=== PATIENT | male | born 1970 | race Caucasian/White ===

== ENCOUNTER 2018-03-10 12:05 | Observation (INO) | payer MEDICAID ==
--- NOTE | 2018-03-10 12:11 | EDM.PDOC ---
ED HPI GENERAL MEDICAL PROBLEM - General Chief Complaint: General Stated Complaint: "Cramps all over" Time Seen by Provider: 03/10/18 12:10 Source of Information: Reports: Patient, Family - History of Present Illness INITIAL COMMENTS - FREE TEXT/NARRATIVE: States that he has been having terrible muscle cramps. He said they started after having "a half seizure" yesterday. He says that he had terrible muscle cramps and he held onto the chair and it went away. He states that since then he has had muscle cramps in arms and legs. He hasn't been eating well as when he does the last several days he throws it up. Denies any blood in his vomit. Has pain in the midepigastric area with palpation. No diarrhea. Does admit to drinking about a 12 pack a day of beer and sometimes some hard shots. Has not been taking his seizure meds as he has been out of them. Onset: Gradual Location: Reports: Abdomen, Upper Extremity, Left, Upper Extremity, Right, Lower Extremity, Left, Lower Extremity, Right Worsens with: Reports: Movement Associated Symptoms: Reports: Fever/Chills, Nausea/Vomiting - Related Data Allergies Allergy/AdvReac Type Severity Reaction Status Date / Time No Known Allergies Allergy Verified 04/20/15 20:56 Home Meds: Home Meds carBAMazepine [Carbamazepine] 200 mg PO TID 04/20/15 [History] Past Medical History Neurological History: Reports: Seizure Social & Family History - Alcohol Use Alcohol Use History: Yes Days Per Week of Alcohol Use Comment: 12 pack of beer and some hard shots some days. ED ROS GENERAL - Review of Systems Review Of Systems: See Below Constitutional: Reports: Weakness. Denies: Fever, Chills HEENT: Reports: No Symptoms Respiratory: Reports: No Symptoms Cardiovascular: Reports: No Symptoms GI/Abdominal: Reports: Abdominal Pain, Anorexia, Nausea, Vomiting. Denies: Black Stool, Bloody Stool, Constipation, Diarrhea : Reports: No Symptoms Musculoskeletal: Reports: Other (muscle cramps to his extremities.) Skin: Reports: No Symptoms Neurological: Reports: Other (memory getting worse.) Psychiatric: Reports: No Symptoms ED EXAM, GENERAL - Physical Exam Exam: See Below Exam Limited By: No Limitations General Appearance: Alert, Mild Distress Ears: Normal External Exam, Normal Canal, Normal TMs Nose: Normal Inspection Throat/Mouth: Normal Inspection, Normal Oropharynx, No Airway Compromise Head: Atraumatic, Normocephalic Neck: Normal Inspection, Supple, Non-Tender, Full Range of Motion Respiratory/Chest: No Respiratory Distress, Lungs Clear, Normal Breath Sounds Cardiovascular: Regular Rate, Rhythm, No Edema GI/Abdominal: Normal Bowel Sounds, Soft, Tender (tender in the midepgastric area.) Extremities: Normal Inspection, Normal Range of Motion, Other (legs and arms are tender in the muscle bodies. Is able to ambulate without any difficulty but does wal slowly.) Neurological: Alert, Oriented, Normal Reflexes, No Motor/Sensory Deficits Psychiatric: Normal Affect Skin Exam: Warm, Dry, Intact Course - Orders/Labs/Meds Orders: Active Orders 24 hr Category Date Time Status C-REACTIVE PROTEIN [CHEM] Stat Lab 03/10/18 12:15 Received COMPREHENSIVE METABOLIC PN,CMP [CHEM] Stat Lab 03/10/18 12:15 Received UA W/MICROSCOPIC [URIN] Stat Lab 03/10/18 12:09 Ordered Labs: Laboratory Tests 03/10/18 Range/Units 12:15 WBC 8.3 (5.0-10.0) 10^3/uL RBC 5.06 (4.50-6.00) 10^6/uL Hgb 16.2 (14.0-18.0) g/dL Hct 45.9 (40.0-54.0) % MCV 90.7 (82.0-94.0) fL MCH 32.0 (27.0-32.0) pg MCHC 35.3 (33.0-38.0) g/dL RDW Coeff of Isabelle 12.9 (11.0-15.0) % Plt Count 228 (150-400) 10^3/uL Neut % (Auto) 64.8 (35-85) % Lymph % (Auto) 20.5 (10-55) % [place] % (Auto) 13.4 (0-16) % Eos % (Auto) 1.1 (0-5) % Baso % (Auto) 0.2 (0-3) % Neut # (Auto) 5.40 (1.80-7.00) 10^3/uL Lymph # (Auto) 1.71 (1.00-4.80) 10^3/uL [place] # (Auto) 1.12 H (0.00-0.80) 10^3/uL Eos # (Auto) 0.09 (0.00-0.45) 10^3/uL Baso # (Auto) 0.02 10^3/uL - Re-Assessments/Exams Free Text/Narrative Re-Assessment/Exam: 03/10/18 13:10 In to discuss his lab results with the patient. He will be admitted observation for IV fluids, IV potassium, Magnesium and protonix. Will get labs repeated in the AM. Departure - Departure Time of Disposition: 13:18 Disposition: Refer to Observation Condition: Fair Clinical Impression: Hypokalemia, Hyponatremia, Hypomagnesemia, Muscle cramps, Seizure disorder - Discharge Information *PRESCRIPTION DRUG MONITORING PROGRAM REVIEWED*: Not Applicable *COPY OF PRESCRIPTION DRUG MONITORING REPORT IN PATIENT ANH: Not Applicable Forms: ED Department Discharge Additional Instructions: Will be admitted observation for IV fluids, magnesium, potassium, and protonix. - Problem List & Annotations (1) Hypokalemia SNOMED Code(s): 33440971 Code(s): E87.6 - HYPOKALEMIA Status: Acute Priority: High Current Visit : Yes (2) Hypomagnesemia SNOMED Code(s): 578535687 Code(s): E83.42 - HYPOMAGNESEMIA Status: Acute Priority: High Current Visit: Yes (3) Hyponatremia SNOMED Code(s): 12091582 Code(s): E87.1 - HYPO-OSMOLALITY AND HYPONATREMIA Status: Acute Priority : High Current Visit: Yes (4) Muscle cramps SNOMED Code(s): 58942508 Code(s): R25.2 - CRAMP AND SPASM Status: Acute Priority: Medium Current Visit: Yes (5) Seizure SNOMED Code(s): 50032131 Code(s): R56.9 - UNSPECIFIED CONVULSIONS Status: Chronic Priority: Low Current Visit: No (6) Alcohol abuse SNOMED Code(s): 34889307 Code(s): F10.10 - ALCOHOL ABUSE, UNCOMPLICATED Status: Chronic Priority: Low Current Visit: No - Problem List Review Problem List Initiated/Reviewed/Updated: Yes - My Orders Last 24 Hours: My Active Orders 03/10/18 12:09 UA W/MICROSCOPIC [URIN] Stat 03/10/18 12:15 C-REACTIVE PROTEIN [CHEM] Stat COMPREHENSIVE METABOLIC PN,CMP [CHEM] Stat - Assessment/Plan Admission H&P: Please use this note as an admission H&P Last 24 Hours: My Active Orders 03/10/18 12:09 UA W/MICROSCOPIC [URIN] Stat 03/10/18 12:15 C-REACTIVE PROTEIN [CHEM] Stat COMPREHENSIVE METABOLIC PN,CMP [CHEM] Stat
[2018-03-10 12:32] LABS: CHLORIDE,CL 78 mEq/L (98-106); SODIUM,NA 128 mEq/L (136-145)
[2018-03-10] MEDS ORDERED: Magnesium Sulfate/D5W 2 GM in Premix Bag 1 BAG IV ONE (13:34)
[2018-03-10] MEDS ORDERED: Ondansetron 4 MG/2 ML SDV IVPUSH PRN (13:34)
[2018-03-10] MEDS ORDERED: Potassium Chloride 40 MEQ in Premix Bag 1 BAG IV ONE (13:34)
[2018-03-10] MEDS ORDERED: Sodium Chloride 0.9% 10 ML Syringe FLUSH PRN (13:34)
[2018-03-10] MEDS ORDERED: Thiamine 200 MG/2 ML MDV IV SCH (13:45)
[2018-03-10] MEDS ORDERED: LORazepam 2 MG/ML Syringe IVPUSH PRN (13:48)
[2018-03-10] MEDS: Pantoprazole 40 MG Vial IVPUSH SCH (14:24)
[2018-03-10] MEDS: Thiamine 100 MG in Sodium Chloride 0.9% 50 ML IV SCH (14:30)
[2018-03-10] MEDS: Nicotine 14 MG/24 Hr Patch TRDERM SCH (14:30)
[2018-03-10] MEDS: Enoxaparin 40 MG/0.4 ML Syringe SUBCUT SCH (14:31)
[2018-03-10] MEDS: Sodium Chloride 0.9% 1,000 ML IV SCH ×2 (14:48→22:08)
[2018-03-10] MEDS ORDERED: Ibuprofen 200 MG Tab PO PRN (19:33)
[2018-03-11] MEDS: Sodium Chloride 0.9% 1,000 ML IV SCH ×3 (06:09→22:12)
[2018-03-11 07:30] LABS: CHLORIDE,CL 87 mEq/L (98-106); SODIUM,NA 126 mEq/L (136-145)
[2018-03-11] MEDS: Nicotine 14 MG/24 Hr Patch TRDERM SCH ×2 (07:54→18:50)
[2018-03-11] MEDS: Thiamine 100 MG in Sodium Chloride 0.9% 50 ML IV SCH (07:55)
[2018-03-11] MEDS ORDERED: Potassium Chloride 40 MEQ in Premix Bag 1 BAG IV ONE (09:10)
--- NOTE | 2018-03-11 09:31 | PCM.PN ---
- General Info Date of Service: 03/11/18 Admission Dx/Problem (Free Text): hypokalemia, hyponatremia, hypomagnesium, weakness Subjective Update: States that he is feeling better today. Has been urinating more frequently. Muscle cramps have improved. Functional Status: Reports: Pain Controlled - Review of Systems General: Reports: No Symptoms HEENT: Reports: No Symptoms Pulmonary: Reports: No Symptoms Cardiovascular: Reports: No Symptoms Gastrointestinal: Reports: No Symptoms Genitourinary: Reports: No Symptoms Musculoskeletal: Reports: No Symptoms Skin: Reports: No Symptoms Neurological: Reports: No Symptoms - Patient Data Vitals - Most Recent: Last Vital Signs Temp 98.7 F 03/11/18 05:00 Pulse 96 03/11/18 05:00 Resp 16 03/11/18 05:00 BP 135/84 03/11/18 05:00 Pulse Ox 94 L 03/11/18 05:00 Weight - Most Recent: 127 lb 3.307 oz I&O - Last 24 Hours: Intake & Output 03/10/18 03/11/18 03/11/18 22:59 06:59 14:59 Intake Total 2792 1860 Output Total 300 650 Balance 2492 1210 Lab Results Last 24 Hours: Laboratory Results - last 24 hr 03/10/18 03/10/18 03/10/18 Range/Units 12:15 12:15 18:46 WBC 8.3 (5.0-10.0) 10^3/uL RBC 5.06 (4.50-6.00) 10^6/uL Hgb 16.2 (14.0-18.0) g/dL Hct 45.9 (40.0-54.0) % MCV 90.7 (82.0-94.0) fL MCH 32.0 (27.0-32.0) pg MCHC 35.3 (33.0-38.0) g/dL RDW Coeff of Isabelle 12.9 (11.0-15.0) % Plt Count 228 (150-400) 10^3/uL Neut % (Auto) 64.8 (35-85) % Lymph % (Auto) 20.5 (10-55) % [place] % (Auto) 13.4 (0-16) % Eos % (Auto) 1.1 (0-5) % Baso % (Auto) 0.2 (0-3) % Neut # (Auto) 5.40 (1.80-7.00) 10^3/uL Lymph # (Auto) 1.71 (1.00-4.80) 10^3/uL [place] # (Auto) 1.12 H (0.00-0.80) 10^3/uL Eos # (Auto) 0.09 (0.00-0.45) 10^3/uL Baso # (Auto) 0.02 10^3/uL Sodium 128 L (136-145) mEq/L Potassium 2.5 L* D (3.5-5.0) mEq/L Chloride 78 L (98-106) mEq/L Carbon Dioxide 42 H* D (21-32) mmol/L BUN 17 D (7-18) mg/dL Creatinine 2.0 H D (0.7-1.3) mg/dL Est Cr Clr Drug Dosing TNP Estimated GFR (MDRD) 36 L (>=60) mL/min Glucose 110 H (75-99) mg/dL Calcium 9.0 (8.4-10.1) mg/dL Magnesium 1.1 L (1.8-2.4) mg/dL Total Bilirubin 1.6 H (0.0-1.0) mg/dL AST 67 H (15-37) U/L ALT 171 H (12-78) U/L Alkaline Phosphatase 131 H (46-116) U/L C-Reactive Protein 5.2 H (0.2-0.8) mg/dL Total Protein 9.5 H (6.4-8.2) g/dL Albumin 4.2 (3.4-5.0) g/dL Urine Color Yellow (YELLOW) Urine Appearance Clear (CLEAR) Urine pH 8.5 H (4.5-8.0) Ur Specific [place] 1.015 (1.003-1.020) Urine Protein Trace H (NEGATIVE) mg/dL Urine Glucose (UA) Negative (NEGATIVE) mg/dL Urine Ketones Negative (NEGATIVE) mg/dL Urine Occult Blood Trace-intact H (NEGATIVE) Urine Nitrite Negative (NEGATIVE) Urine Bilirubin Small H (NEGATIVE) Urine Urobilinogen 4.0 H (0.2-1.0) EU/dL Ur Leukocyte Esterase Negative (NEGATIVE) Urine RBC Not seen (0-5) /HPF Urine WBC Not seen (0-5) /HPF Ur Epithelial Cells Few H (NOT SEEN) /HPF Hyaline Casts Moderate H (NOT SEEN) /LPF Urine Mucus Few H (NOT SEEN) /HPF 03/11/18 03/11/18 Range/Units 06:50 06:50 WBC 5.0 (5.0-10.0) 10^3/uL RBC 3.65 L (4.50-6.00) 10^6/uL Hgb 11.8 L (14.0-18.0) g/dL Hct 33.3 L (40.0-54.0) % MCV 91.2 (82.0-94.0) fL MCH 32.3 H (27.0-32.0) pg MCHC 35.4 (33.0-38.0) g/dL RDW Coeff of Isabelle 12.2 (11.0-15.0) % Plt Count 143 L (150-400) 10^3/uL Neut % (Auto) 51.4 (35-85) % Lymph % (Auto) 29.0 (10-55) % [place] % (Auto) 17.4 H (0-16) % Eos % (Auto) 2.0 (0-5) % Baso % (Auto) 0.2 (0-3) % Neut # (Auto) 2.57 (1.80-7.00) 10^3/uL Lymph # (Auto) 1.45 (1.00-4.80) 10^3/uL [place] # (Auto) 0.87 H (0.00-0.80) 10^3/uL Eos # (Auto) 0.10 (0.00-0.45) 10^3/uL Baso # (Auto) 0.01 10^3/uL Sodium 126 L (136-145) mEq/L Potassium 2.6 L* (3.5-5.0) mEq/L Chloride 87 L (98-106) mEq/L Carbon Dioxide 38 H (21-32) mmol/L BUN 13 (7-18) mg/dL Creatinine 1.1 (0.7-1.3) mg/dL Est Cr Clr Drug Dosing 66.30 Estimated GFR (MDRD) > 60 (>=60) mL/min Glucose 96 (75-99) mg/dL Calcium 7.7 L (8.4-10.1) mg/dL Magnesium 1.6 L (1.8-2.4) mg/dL Total Bilirubin 1.1 H (0.0-1.0) mg/dL AST 40 H (15-37) U/L ALT 94 H (12-78) U/L Alkaline Phosphatase 86 (46-116) U/L C-Reactive Protein 4.9 H (0.2-0.8) mg/dL Total Protein 6.4 (6.4-8.2) g/dL Albumin 2.8 L (3.4-5.0) g/dL Urine Color (YELLOW) Urine Appearance (CLEAR) Urine pH (4.5-8.0) Ur Specific [place] (1.003-1.020) Urine Protein (NEGATIVE) mg/dL Urine Glucose (UA) (NEGATIVE) mg/dL Urine Ketones (NEGATIVE) mg/dL Urine Occult Blood (NEGATIVE) Urine Nitrite (NEGATIVE) Urine Bilirubin (NEGATIVE) Urine Urobilinogen (0.2-1.0) EU/dL Ur Leukocyte Esterase (NEGATIVE) Urine RBC (0-5) /HPF Urine WBC (0-5) /HPF Ur Epithelial Cells (NOT SEEN) /HPF Hyaline Casts (NOT SEEN) /LPF Urine Mucus (NOT SEEN) /HPF Med Orders - Current: Current Medications Enoxaparin Sodium (Lovenox) 40 mg SUBCUT Q24H [facility] Last Admin: 03/10/18 14:31 Dose: 40 mg Sodium Chloride (Normal Saline) 1,000 mls @ 125 mls/hr IV ASDIRECTED [facility] Last Admin: 03/11/18 06:09 Dose: 125 mls/hr Thiamine HCl 100 mg/ Sodium (Chloride) 51 mls @ 102 mls/hr IV DAILY [facility] Last Admin: 03/11/18 07:55 Dose: 102 mls/hr Magnesium Sulfate/Dextrose 1 (gm/ Premix) 100 mls @ 100 mls/hr IV ONETIME ONE Stop: 03/11/18 10:10 Potassium Chloride 40 meq/ (Premix) 100 mls @ 25 mls/hr IV ONETIME ONE Stop: 03/11/18 13:09 Ibuprofen (Motrin) 400 mg PO Q6H PRN PRN Reason: Pain Last Admin: 03/10/18 19:53 Dose: 400 mg Levetiracetam (Keppra) 500 mg PO BID [facility] Lorazepam (Ativan) 2 mg IVPUSH ASDIRECTED PRN PRN Reason: agitation Nicotine (Habitrol) 14 mg TRDERM DAILY [facility] Last Admin: 03/11/18 07:54 Dose: 14 mg Ondansetron HCl (Zofran) 4 mg IVPUSH Q6H PRN PRN Reason: Nausea Pantoprazole Sodium (Protonix Iv) 40 mg IVPUSH Q24H [facility] Last Admin: 03/10/18 14:24 Dose: 40 mg Sodium Chloride (Saline Flush) 10 ml FLUSH ASDIRECTED PRN PRN Reason: Keep Vein Open Discontinued Medications Magnesium Sulfate/Dextrose 2 (gm/ Premix) 200 mls @ 100 mls/hr IV ONETIME ONE Stop: 03/10/18 15:33 Last Admin: 03/10/18 14:48 Dose: 100 mls/hr Potassium Chloride 40 meq/ (Premix) 100 mls @ 25 mls/hr IV ONETIME ONE Stop: 03/10/18 17:33 Last Admin: 03/10/18 14:48 Dose: 25 mls/hr Thiamine HCl (Vitamin B-1) 100 mg IV DAILY [facility] Last Admin: 03/10/18 14:09 Dose: Not Given - Exam General: Alert, Oriented Neck: Supple Lungs: Clear to Auscultation, Normal Respiratory Effort Cardiovascular: Regular Rate, Regular Rhythm GI/Abdominal Exam: Normal Bowel Sounds, Soft, No Organomegaly, Tender (Tender to the right upper quadrant. ) Back Exam: Normal Inspection, Full Range of Motion Extremities: Normal Inspection, Normal Range of Motion, Non-Tender Skin: Warm, Dry Psy/Mental Status: Alert, Normal Affect, Normal Mood - Problem List & Annotations (1) Hypokalemia SNOMED Code(s): 43492641 Code(s): E87.6 - HYPOKALEMIA Status: Acute Priority: High Current Visit : Yes (2) Hypomagnesemia SNOMED Code(s): 851856953 Code(s): E83.42 - HYPOMAGNESEMIA Status: Acute Priority: High Current Visit: Yes (3) Hyponatremia SNOMED Code(s): 22707380 Code(s): E87.1 - HYPO-OSMOLALITY AND HYPONATREMIA Status: Acute Priority : High Current Visit: Yes (4) Muscle cramps SNOMED Code(s): 17316163 Code(s): R25.2 - CRAMP AND SPASM Status: Acute Priority: Medium Current Visit: Yes (5) Seizure SNOMED Code(s): 83723414 Code(s): R56.9 - UNSPECIFIED CONVULSIONS Status: Chronic Priority: Low Current Visit: No (6) Alcohol abuse SNOMED Code(s): 06161676 Code(s): F10.10 - ALCOHOL ABUSE, UNCOMPLICATED Status: Chronic Priority: Low Current Visit: No - Problem List Review Problem List Initiated/Reviewed/Updated: Yes - My Orders Last 24 Hours: My Active Orders 03/10/18 13:22 Resuscitation Status Routine 03/10/18 13:34 Patient Status [ADT] Routine Height and Weight [RC] 0500 Intake and Output [RC] 0600,1800 Oxygen Therapy [RC] .PRN Peripheral IV Care [RC] 0800,2000 Up ad Micheline [RC] .PRN Vital Signs [RC] 0000,0400,0800,1200,1600,2000 Ondansetron [Zofran] 4 mg IVPUSH Q6H PRN Sodium Chloride 0.9% [Normal Saline] 1,000 ml IV ASDIRECTED Sodium Chloride 0.9% [Saline Flush] 10 ml FLUSH ASDIRECTED PRN Peripheral IV Insertion Adult [OM.PC] Routine 03/10/18 13:48 LORazepam [Ativan] 2 mg IVPUSH ASDIRECTED PRN 03/10/18 14:00 Enoxaparin [Lovenox] 40 mg SUBCUT Q24H Nicotine [Habitrol] 14 mg TRDERM DAILY Pantoprazole [ProTONIX IV] 40 mg IVPUSH Q24H 03/10/18 14:15 Thiamine [Vitamin B-1] 100 mg Sodium Chloride 0.9% [Normal Saline] 50 ml IV DAILY 03/10/18 18:46 UA W/MICROSCOPIC [URIN] Stat 03/10/18 19:33 Ibuprofen [Motrin] 400 mg PO Q6H PRN 03/10/18 Dinner Regular Diet [DIET] 03/11/18 09:10 Potassium Chloride [KCL 40 MEQ in Water 100 ML] 40 meq Premix Bag 1 bag IV ONETIME 03/11/18 09:11 Magnesium Sulfate/D5W [Magnesium 1 GM in D5W 100 ML] 1 gm Premix Bag 1 bag IV ONETIME 03/11/18 09:22 Abdomen Ltd [US] Routine 03/11/18 09:30 levETIRAcetam [Keppra] 500 mg PO BID 03/12/18 05:11 AMYLASE [CHEM] AM BASIC METABOLIC PANEL,BMP [CHEM] AM CBC WITH AUTO DIFF [HEME] AM MAGNESIUM [CHEM] AM - Plan Plan:: Potassium and magnesium are still both low at this time. Will repeat doses of both of these and repeat labs in the AM. Restart seizures meds that he has not been taking in several months will get RUQ abdominal US in the AM to rule out gallbladder dysfunction as he is tender in the RUQ of abdomen Continue on the IV fluids for hydration
[2018-03-11] MEDS: levETIRAcetam 500 MG Tab PO SCH ×2 (09:42→19:20)
[2018-03-11] MEDS: Enoxaparin 40 MG/0.4 ML Syringe SUBCUT SCH (14:10)
[2018-03-11] MEDS: Pantoprazole 40 MG Vial IVPUSH SCH (14:10)
[2018-03-12] MEDS: Sodium Chloride 0.9% 1,000 ML IV SCH (05:50)
[2018-03-12 07:28] LABS: CHLORIDE,CL 99 mEq/L (98-106); SODIUM,NA 133 mEq/L (136-145)
[2018-03-12] MEDS ORDERED: Magnesium Sulfate/D5W 2 GM in Premix Bag 1 BAG IV ONE (08:09)
[2018-03-12] MEDS ORDERED: Potassium Chloride 40 MEQ in Premix Bag 1 BAG IV ONE (08:09)
[2018-03-12] MEDS: Thiamine 100 MG in Sodium Chloride 0.9% 50 ML IV SCH (08:22)
[2018-03-12] MEDS: Nicotine 14 MG/24 Hr Patch TRDERM SCH (09:35)
[2018-03-12] MEDS: levETIRAcetam 500 MG Tab PO SCH (09:36)
[2018-03-12] MEDS: Pantoprazole 40 MG Vial IVPUSH SCH (13:02)
[2018-03-12] MEDS: Enoxaparin 40 MG/0.4 ML Syringe SUBCUT SCH (13:02)
[2018-03-12 15:14] LABS: CHLORIDE,CL 98 mEq/L (98-106); SODIUM,NA 130 mEq/L (136-145)
[2018-03-12 15:21] VITALS: BP 165/93
--- NOTE | 2018-03-12 16:00 | PCM.DCSUM1 ---
Discharge Summary - Hospital Course Brief History: Pt was admitted with right upper abdominal pain with loss of appetite, weakness and muscle cramps that were getting worse to both the upper and lower extremities. He has not been taking his antiseizure meds as he didn' t come in for a refill. In ER he was found to have hypomagnesium, hypokalemia and hyponatremia. He was admitted for IV replacement of the above and to workup the abdominal pain and restart his antiseizure meds. Diagnosis: Stroke: No - Discharge Data Discharge Date: 03/12/18 Discharge Disposition: Home, Self-Care 01 Condition: Good - Discharge Diagnosis/Problem(s) (1) Hypokalemia SNOMED Code(s): 06693820 ICD Code: E87.6 - HYPOKALEMIA Status: Acute Priority: High (2) Hypomagnesemia SNOMED Code(s): 800212053 ICD Code: E83.42 - HYPOMAGNESEMIA Status: Acute Priority: High (3) Hyponatremia SNOMED Code(s): 78322130 ICD Code: E87.1 - HYPO-OSMOLALITY AND HYPONATREMIA Status: Acute Priority : High (4) Seizure SNOMED Code(s): 95787074 ICD Code: R56.9 - UNSPECIFIED CONVULSIONS Status: Chronic Priority: Low (5) Alcohol abuse SNOMED Code(s): 40471699 ICD Code: F10.10 - ALCOHOL ABUSE, UNCOMPLICATED Status: Chronic Priority : Low (6) Muscle cramps SNOMED Code(s): 64389602 ICD Code: R25.2 - CRAMP AND SPASM Status: Acute Priority: Medium - Patient Summary/Data Hospital Course: He was given multiple doses of IV magnesium, and potassium along with Normal saline replacement to bring his electrolytes back to normal levels. He had a RUQ abdominal US which showed thickening of the gallbladder wall. He is scheduled for HIDA scan in the future. His appetite did return to normal as he was eating well in the hospital having normal bowel sounds. Muscle cramps subsided in both the legs and arms. He was restarted on his antiseizure meds and no seizures were noted while in the hospital. - Patient Instructions Diet: Usual Diet as Tolerated Activity: As Tolerated Driving: May Drive Today Showering/Bathing: May Shower Notify Provider of: Fever, Increased Pain - Discharge Plan *PRESCRIPTION DRUG MONITORING PROGRAM REVIEWED*: Not Applicable *COPY OF PRESCRIPTION DRUG MONITORING REPORT IN PATIENT ANH: Not Applicable Home Medications: Home Meds levETIRAcetam [Keppra] 1 tab PO BID 03/11/18 [History] Patient Handouts: Hyponatremia, Hypokalemia Forms: ED Department Discharge Referrals: Abhishek Hassan MD [Primary Care Provider] - - Discharge Summary/Plan Comment DC Time >30 min.: Yes Discharge Summary/Plan Comment: discharge with outpt HIDA scan as scheduled. Avoid alcohol start magnesium supplements - General Info Admission Dx/Problem (Free Text: hypokalemia, hyponatremia, hypomagnesium, weakness Subjective Update: States that he is feeling better today. Has been urinating more frequently. Muscle cramps have improved. Functional Status: Reports: Pain Controlled - Review of Systems General: Denies: Fever, Weakness HEENT: Reports: No Symptoms Pulmonary: Reports: No Symptoms Cardiovascular: Reports: No Symptoms Gastrointestinal: Reports: Abdominal Pain (mild right upper quadrant pain remains when palpated.) Genitourinary: Reports: No Symptoms Musculoskeletal: Reports: No Symptoms Skin: Reports: No Symptoms Neurological: Reports: No Symptoms - Patient Data Vitals - Most Recent: Last Vital Signs Temp 97.8 F 03/12/18 15:18 Pulse 85 03/12/18 15:18 Resp 18 03/12/18 15:18 BP 165/93 H 03/12/18 15:18 Pulse Ox 100 03/12/18 15:18 Weight - Most Recent: 131 lb 2.801 oz I&O - Last 24 hours: Intake & Output 03/12/18 03/12/18 03/12/18 06:59 14:59 22:59 Intake Total 6826 649 0313 Output Total 2800 525 300 Balance -1246 -185 700 Lab Results - Last 24 hrs: Laboratory Results - last 24 hr 03/12/18 03/12/18 03/12/18 Range/Units 06:55 06:55 15:00 WBC 4.0 L (5.0-10.0) 10^3/uL RBC 3.45 L (4.50-6.00) 10^6/uL Hgb 11.2 L (14.0-18.0) g/dL Hct 32.3 L (40.0-54.0) % MCV 93.6 (82.0-94.0) fL MCH 32.5 H (27.0-32.0) pg MCHC 34.7 (33.0-38.0) g/dL RDW Coeff of Isabelle 12.1 (11.0-15.0) % Plt Count 158 (150-400) 10^3/uL Neut % (Auto) 45.9 (35-85) % Lymph % (Auto) 32.2 (10-55) % [place] % (Auto) 17.2 H (0-16) % Eos % (Auto) 4.2 (0-5) % Baso % (Auto) 0.5 (0-3) % Neut # (Auto) 1.84 (1.80-7.00) 10^3/uL Lymph # (Auto) 1.29 (1.00-4.80) 10^3/uL [place] # (Auto) 0.69 (0.00-0.80) 10^3/uL Eos # (Auto) 0.17 (0.00-0.45) 10^3/uL Baso # (Auto) 0.02 10^3/uL Sodium 133 L 130 L (136-145) mEq/L Potassium 3.0 L 4.2 D (3.5-5.0) mEq/L Chloride 99 98 (98-106) mEq/L Carbon Dioxide 32 30 (21-32) mmol/L BUN 6 L D 6 L (7-18) mg/dL Creatinine 0.8 0.8 (0.7-1.3) mg/dL Est Cr Clr Drug Dosing 94.00 94.00 mL/min Estimated GFR (MDRD) > 60 > 60 (>=60) mL/min Glucose 87 77 (75-99) mg/dL Calcium 8.2 L 8.4 (8.4-10.1) mg/dL Magnesium 1.4 L 1.7 L (1.8-2.4) mg/dL Amylase 122 H (25-115) U/L Med Orders - Current: Current Medications Enoxaparin Sodium (Lovenox) 40 mg SUBCUT Q24H COUNTS INCLUDE 234 BEDS AT THE [facility] Last Admin: 03/12/18 13:02 Dose: 40 mg Thiamine HCl 100 mg/ Sodium (Chloride) 51 mls @ 102 mls/hr IV DAILY [facility] Last Admin: 03/12/18 08:22 Dose: 102 mls/hr Ibuprofen (Motrin) 400 mg PO Q6H PRN PRN Reason: Pain Last Admin: 03/10/18 19:53 Dose: 400 mg Levetiracetam (Keppra) 500 mg PO BID COUNTS INCLUDE 234 BEDS AT THE [facility] Last Admin: 03/12/18 09:36 Dose: 500 mg Lorazepam (Ativan) 2 mg IVPUSH ASDIRECTED PRN PRN Reason: agitation Nicotine (Habitrol) 14 mg TRDERM DAILY COUNTS INCLUDE 234 BEDS AT [facility] Last Admin: 03/12/18 09:35 Dose: 14 mg Ondansetron HCl (Zofran) 4 mg IVPUSH Q6H PRN PRN Reason: Nausea Pantoprazole Sodium (Protonix Iv) 40 mg IVPUSH Q24H COUNTS INCLUDE 234 BEDS AT [facility] Last Admin: 03/12/18 13:02 Dose: 40 mg Sodium Chloride (Saline Flush) 10 ml FLUSH ASDIRECTED PRN PRN Reason: Keep Vein Open Discontinued Medications Magnesium Sulfate/Dextrose 2 (gm/ Premix) 200 mls @ 100 mls/hr IV ONETIME ONE Stop: 03/10/18 15:33 Last Admin: 03/10/18 14:48 Dose: 100 mls/hr Potassium Chloride 40 meq/ (Premix) 100 mls @ 25 mls/hr IV ONETIME ONE Stop: 03/10/18 17:33 Last Admin: 03/10/18 14:48 Dose: 25 mls/hr Sodium Chloride (Normal Saline) 1,000 mls @ 125 mls/hr IV ASDIRECTED COUNTS INCLUDE 234 BEDS AT THE [facility] Last Admin: 03/12/18 05:50 Dose: 125 mls/hr Magnesium Sulfate/Dextrose 1 (gm/ Premix) 100 mls @ 100 mls/hr IV ONETIME ONE Stop: 03/11/18 10:10 Last Admin: 03/11/18 09:42 Dose: 100 mls/hr Potassium Chloride 40 meq/ (Premix) 100 mls @ 25 mls/hr IV ONETIME ONE Stop: 03/11/18 13:09 Last Admin: 03/11/18 09:51 Dose: 25 mls/hr Magnesium Sulfate/Dextrose 2 (gm/ Premix) 200 mls @ 100 mls/hr IV ONETIME ONE Stop: 03/12/18 10:08 Last Admin: 07/23/18 09:36 Dose: 100 mls/hr Potassium Chloride 40 meq/ (Premix) 100 mls @ 25 mls/hr IV ONETIME ONE Stop: 03/12/18 12:08 Last Admin: 03/12/18 09:39 Dose: 25 mls/hr Thiamine HCl (Vitamin B-1) 100 mg IV DAILY [place] Last Admin: 03/10/18 14:09 Dose: Not Given - Exam General: Reports: Alert, Oriented Neck: Reports: Supple Lungs: Reports: Clear to Auscultation, Normal Respiratory Effort Cardiovascular: Reports: Regular Rate, Regular Rhythm GI/Abdominal Exam: Normal Bowel Sounds, Soft, Tender (tender with palpation to the RUQ. He denies pain if not palpating) Back Exam: Reports: Normal Inspection Extremities: Normal Inspection, No Pedal Edema, Other (No muscle cramping noted. ) Skin: Reports: Warm, Dry Psy/Mental Status: Reports: Alert, Normal Affect
== END 2018-03-12 15:59 | disposition home or self-care (01) ==
LOC: CC.ED 12:05 → CC.MS 13:12 → UNDOADMOB 13:12 → CC.MS 13:22
PROVIDERS: ADMIT Physician Assistant Medical; ATTEND Family Medicine
DX: R10.11 Right upper quadrant pain (principal); R93.2 Abnormal findings on diagnostic imaging of liver and biliary tract; E87.6 Hypokalemia; E83.42 Hypomagnesemia; E87.1 Hypo-osmolality and hyponatremia; R25.2 Cramp and spasm; R63.0 Anorexia; R53.1 Weakness; F10.10 Alcohol abuse, uncomplicated; G40.909 Epilepsy, unspecified, not intractable, without status epilepticus
CPT/HCPCS: 36415; 76705; 80048; 80053; 81001; 82150; 83735; 85025; 86140; 96361; 96365; 96366; 96367; 96368; 96372; 96375; 96376; 99284; A9270-GY; C9113; G0378; J1650; J3411; J3475; J3480; J7030; J7050

== ENCOUNTER → 2019-05-03 | Day surgery (SDC) | payer MEDICAID, OTHER ==
[~2019-05-03] MED LIST: Lactated Ringers 1,000 ML IV SCH; Propofol 200 MG/20 ML SDV IV ONE
[2019-05-03 09:55] VITALS: BP 142/84; PULSE 66
--- NOTE | 2019-05-03 12:53 | OR ---
DATE OF OPERATION: 05/03/2019 PREOPERATIVE DIAGNOSIS: 1. DYSPHAGIA. 2. GASTROESOPHAGEAL REFLUX DISEASE. POSTOPERATIVE DIAGNOSIS: 1. HIATAL HERNIA. 2. CHRONIC GASTROESOPHAGEAL REFLUX DISEASE WITH DISTAL ESOPHAGITIS. SURGEON: Abhishek Hassan MD PROCEDURE: EGD WITH BIOPSIES X2, HOANG. ANESTHESIA: MAC via TESTING AND REGULATING CHIEF. COMPLICATIONS: None. SPECIMEN: 1. Antral HOANG. 2. Distal esophageal biopsy x2. FINDINGS: 1. Full-length EGD. 2. [id number] sized hiatal hernia with spontaneous gastroesophageal reflux disease. 3. Distal esophagitis without obvious Winn's. RECOMMENDATIONS: The patient will be placed on proton pump therapy and needs to have close followup with his primary provider, Clara Boone for symptomatic relief. He could consider hernia repair if he desires. INDICATIONS: The patient apparently has been having what he describes now as 20 years of issues with his hernia in his chest and he came to our emergency room earlier this week with complaints of dysphagia like food gets stuck. He basically just leans backward and things pass which suggest a structural abnormality. He was sent for diagnostic EGD. DESCRIPTION OF PROCEDURE: The patient was prepped and draped, placed in the left lateral decubitus position with the head of the bed elevated. A lubricated Olympus gastroscope was inserted over a bit and advanced to cricopharyngeus area and easily intubated in the esophagus. The esophageal lining was benign until its most distal portion. The Z-line was present at around 35 cm. There was a moderate-sized hernia present with spontaneous GERD. Distal esophagitis is seen diffusely, grade 1 to 2 without any focal ulceration or erosion. No obvious Winn's changes. We did do 2 biopsies of the most affected portion. A lot of mucusy change was present there as well. The scope was advanced into the stomach, through the pylorus, and into the second portion of the duodenum. This and the duodenal bulb were benign. The scope was brought back into the stomach and retroflexed. The upper fundus and cardia did not show any gross abnormalities, but prep was slightly poor here and the patient was then starting to have some issues with retching. A brief look at the rest of the stomach showed no gross peptic ulcer disease, polyp, mass, ulceration, or otherwise. A CLOtest was obtained. Air was suctioned, the scope removed without complication. PETERSON/ANG /[id number]
== END ==
LOC: CC.SDS 08:09
PROVIDERS: ATTEND Family Medicine
DX: K21.0 Gastro-esophageal reflux disease with esophagitis (principal); K22.10 Ulcer of esophagus without bleeding; K44.9 Diaphragmatic hernia without obstruction or gangrene; F17.200 Nicotine dependence, unspecified, uncomplicated; Z79.899 Other long term (current) drug therapy
CPT/HCPCS: 43239; 87081; J2704; J7120

== ENCOUNTER 2019-07-25 08:27 | Day surgery (SDC) | payer MEDICAID ==
[2019-07-25] MEDS ORDERED: ceFAZolin 1 GM Vial IVPUSH STA (08:32)
[2019-07-25] MEDS: Lactated Ringers 1,000 ML IV SCH ×3 (09:03→21:26)
[2019-07-25] MEDS ORDERED: Ondansetron 4 MG/2 ML SDV IVPUSH PRN (12:16)
[2019-07-25] MEDS ORDERED: Sodium Chloride 0.9% 10 ML Syringe FLUSH PRN (12:19)
--- NOTE | 2019-07-25 13:05 | OR ---
DATE OF OPERATION: 07/25/2019 PREOPERATIVE DIAGNOSIS: GASTROESOPHAGEAL REFLUX DISEASE AND HIATAL HERNIA AND 1.5 CM SEBACEOUS CYST LOCATED ON THE RIGHT CHEEK OF THE FACE AND THE LEFT UPPER PORTION OF THE NECK. POSTOPERATIVE DIAGNOSIS: GASTROESOPHAGEAL REFLUX DISEASE AND HIATAL HERNIA AND 1.5 CM SEBACEOUS CYST LOCATED ON THE RIGHT CHEEK OF THE FACE AND THE LEFT UPPER PORTION OF THE NECK. SURGEON: Martir Brunson MD PROCEDURE: 1. LAPAROSCOPIC ANDERSON FUNDOPLICATION AND HIATAL HERNIA REPAIR. 2. EXCISION OF A 1.5 CM SEBACEOUS CYST, RIGHT CHEEK, AND 1.5 CM CYST, LEFT NECK. ANESTHESIA: General. ESTIMATED BLOOD LOSS: Minimum. SPECIMEN: Cyst sacs. INDICATIONS: This 48-year-old male has moderate gastroesophageal reflux disease and a hiatal hernia. This is documented by EGD. The patient is not overly receptive to H2 blockers anymore. He also has 2 large cysts that are easily visible and bother him. These are located on the right cheek and the upper left neck. DESCRIPTION OF PROCEDURE: After adequate preparation, a 5 mm trocar was placed in the left upper quadrant, the abdomen insufflated. Under direct vision, four other trocars were placed in the standard fashion. The liver was elevated to expose the upper portion of the stomach and hiatal hernia. The peritoneum was dissected off the right crura and up over the anterior portion of the esophagus. This was then carried down along the left crura. This then exposed the hiatal hernia with the esophagus in there. The stomach was easily brought down into the abdomen. The greater omentum was elevated. Then, using a cautery device, the short gastrics were taken down to free up the fundus of the stomach. The fundus of the stomach was then brought posteriorly to the esophagus and a 360- degree Anderson fundoplication wrap was accomplished. This seemed adequately loose and floppy. Two sutures were used to anchor this in place. One suture was used, permanent suture was used to close the base of the crura around the esophagus. No other intraabdominal abnormalities were noted. The abdomen was desufflated and the skin closed with Monocryl. An incision was then made over the sebaceous cyst on the left upper neck. This was carried down to the cyst and the cyst sac was bluntly dissected free from the subcutaneous tissue and excised. The skin was closed with a running 4-0 Vicryl. The procedure was repeated for the cyst on the right side of the face 1.5 cm in diameter. This was dissected free from subcutaneous tissue, excised, and the skin closed with 4- 0 nylon. The patient was taken to recovery room. SANTIAGO/ANG /[id number]
[2019-07-25] MEDS: Nicotine 21 MG/24 Hr Patch TRDERM SCH (13:30)
[2019-07-25] MEDS: chlordiazePOXIDE 10 MG Cap PO PRN (18:08)
[2019-07-25] MEDS: Acetaminophen/oxyCODONE 325-5 MG Tab PO PRN (20:29)
[2019-07-25] MEDS ORDERED: Budesonide 0.5 MG/2 ML Neb Susp NEB ONE (22:22)
[2019-07-25] MEDS ORDERED: Budesonide 0.5 MG/2 ML Neb Susp ONE (22:32)
[2019-07-26] MEDS: Acetaminophen/oxyCODONE 325-5 MG Tab PO PRN (04:02)
[2019-07-26] MEDS: Lactated Ringers 1,000 ML IV SCH (05:21)
[2019-07-26] MEDS: chlordiazePOXIDE 10 MG Cap PO PRN (07:54)
[2019-07-26] MEDS: Nicotine 21 MG/24 Hr Patch TRDERM SCH (07:54)
--- NOTE | 2019-07-26 08:41 | PCM.SN ---
- Free Text/Narrative Note: Stable POD#1. VSS. Alert. Pain controlled. PO liquid tolerated well. Wounds clean and dry. Instructions given. Percocet #20 given for pain. Instructed to eat slow, chew well and small bites. Liquids for first week. Can discharge today. FU with Clara Boone as needed.
[2019-07-26 11:40] VITALS: BP 142/96; PULSE 100
== END 2019-07-26 10:00 | disposition home or self-care (01) ==
LOC: CC.SDS 08:27
PROVIDERS: ATTEND Surgery
DX: K44.9 Diaphragmatic hernia without obstruction or gangrene (principal); K21.9 Gastro-esophageal reflux disease without esophagitis; L72.0 Epidermal cyst; J44.1 Chronic obstructive pulmonary disease with (acute) exacerbation; I10 Essential (primary) hypertension; E83.42 Hypomagnesemia; I73.9 Peripheral vascular disease, unspecified; F17.210 Nicotine dependence, cigarettes, uncomplicated; Z79.899 Other long term (current) drug therapy; Z79.51 Long term (current) use of inhaled steroids
CPT/HCPCS: 94640; A9270-GY; J0690; J2270; J2405; J7120

== ENCOUNTER 2021-01-11 18:01 | Inpatient (IN) | payer MEDICAID ==
[2021-01-11] MEDS ORDERED: Aspirin 81 MG Tab.Chew PO ONE (19:32)
[2021-01-11] MEDS ORDERED: Nitroglycerin 0.4 MG Tab.SL SL ONE (19:32)
[2021-01-11 19:54] LABS: CHLORIDE,CL 86 mEq/L (98-106)
[2021-01-11 19:58] LABS: SODIUM,NA 123 mEq/L (136-145)
--- NOTE | 2021-01-11 20:46 | EDM.PDOC ---
ED HPI GENERAL MEDICAL PROBLEM - General Chief Complaint: Chest Pain Stated Complaint: "chest knotted up" Time Seen by Provider: 01/11/21 19:15 Source of Information: Reports: Patient History Limitations: Reports: No Limitations - History of Present Illness INITIAL COMMENTS - FREE TEXT/NARRATIVE: Jose is a 50 year old male who presents to the ED with c/o chest pain, cough and shortness of breath. He reports symptom onset 1 week ago. He reports he has had progressive weakness since that time as well. Reports he has had multiple falls. Now has had severe chest pain "over his heart." He reports he feels like "his lungs are plugged up." He does report chronic cough, but it has been worse the last week. He reports he has not been eating/drinking much the last few days. Does report dizziness when he is up moving around. Denies any fever, chills, N/V/D, abdominal pain. He reports he does drink 6 beers/day. Also reports for the past 40 years he has been a 1 ppd smoker. Reports occasional marijuana use, but no other illicit drug use. Onset Date: 01/05/21 Duration: Getting Worse Location: Reports: Chest Quality: Reports: Sharp Severity: Severe Worsens with: Reports: Breathing Associated Symptoms: Reports: Chest Pain, Cough, cough w sputum, Loss of Appetite, Malaise, Shortness of Breath, Weakness. Denies: Confusion, Diaphoresis, Fever/Chills, Headaches, Nausea/Vomiting, Rash, Seizure, Syncope Anterior Chest Pain Score (Numeric/FACES): 7 - Related Data Allergies Allergy/AdvReac Type Severity Reaction Status Date / Time No Known Allergies Allergy Verified 01/11/21 19:12 Home Meds: Home Meds levETIRAcetam [Keppra] 500 mg PO BID 03/11/18 [History] Albuterol Sulfate [Proair Hfa] 1 - 2 puff INH Q4H PRN 05/02/19 [History] Budesonide/Formoterol [Symbicort 160-4.5 MCG] 2 puff INH BID 05/02/19 [History] Ipratropium/Albuterol Sulfate [Iprat-Albut 0.5-3(2.5) mg/3 ml] 3 ml IH Q4H PRN 05/02/19 [History] Past Medical History Cardiovascular History: Reports: Hypertension Respiratory History: Reports: SOB Other Musculoskeletal History: General muscle cramps. Neurological History: Reports: Seizure Psychiatric History: Reports: Addiction Social & Family History - Tobacco Use Tobacco Use Status *Q: Current Every Day Tobacco User Years of Tobacco use: 40 Packs/Tins Daily: 1 - Alcohol Use Alcohol Use History: Yes Number of Drinks Per Day: 6 Alcohol Use Frequency: Binges, Daily - Recreational Drug Use Recreational Drug Use: Yes Recreational Drug Type: Reports: Marijuana/Hashish Recreational Drug Use Frequency: Socially ED ROS GENERAL - Review of Systems Review Of Systems: See Below Constitutional: Reports: Malaise, Weakness, Fatigue, Decreased Appetite. Denies: Fever, Chills HEENT: Reports: Rhinitis Respiratory: Reports: Shortness of Breath, Wheezing, Pleuritic Chest Pain, Cough, Sputum. Denies: Hemoptysis Cardiovascular: Reports: Chest Pain, Dyspnea on Exertion. Denies: Edema, Syncope Endocrine: Reports: No Symptoms GI/Abdominal: Reports: Decreased Appetite. Denies: Abdominal Pain, Diarrhea, Hematochezia, Melena, Nausea, Vomiting : Reports: No Symptoms Musculoskeletal: Reports: No Symptoms Skin: Reports: No Symptoms Neurological: Reports: Dizziness, Weakness. Denies: Confusion, Headache, Numbness, Tingling Psychiatric: Reports: No Symptoms Hematologic/Lymphatic: Reports: No Symptoms Immunologic: Reports: No Symptoms ED EXAM, GENERAL - Physical Exam Exam: See Below Exam Limited By: No Limitations General Appearance: Alert, WD/WN, No Apparent Distress Eye Exam: Bilateral Eye: EOMI, PERRL Nose: Nasal Swelling, Clear Rhinorrhea Throat/Mouth: Normal Oropharynx, No Airway Compromise Head: Atraumatic, Normocephalic Neck: Normal Inspection, Supple, Non-Tender, Full Range of Motion Respiratory/Chest: No Respiratory Distress, No Accessory Muscle Use, Decreased Breath Sounds, Crackles (BLL), Wheezing (throughout), Prolonged Expiration Cardiovascular: Normal Peripheral Pulses, No Edema, Tachycardia GI/Abdominal: Normal Bowel Sounds, Soft, Non-Tender, No Organomegaly, No Distention, No Abnormal Bruit, No Mass Extremities: Normal Inspection, Normal Range of Motion, Non-Tender, Normal Cap illary Refill, No Pedal Edema Neurological: Alert, Oriented, CN II-XII Intact, Normal Cognition, Normal Gait, Normal Reflexes, No Motor/Sensory Deficits, Other (generalized weakness) Psychiatric: Normal Affect, Normal Mood Skin Exam: Warm, Dry, Intact, Normal Color, No Rash Course - Vital Signs Last Recorded V/S: Last Vital Signs Temp 98.9 F 01/11/21 22:41 Pulse 93 01/11/21 22:41 Resp 16 01/11/21 22:41 BP 121/87 01/11/21 22:41 Pulse Ox 98 01/11/21 22:41 - Orders/Labs/Meds Orders: Active Orders 24 hr Category Date Time Status Patient Status [ADT] Routine ADT 01/11/21 22:41 Active Cardiac Monitoring [RC] 0800,2000 Care 01/11/21 22:41 Active Oxygen Therapy [RC] .PRN Care 01/11/21 22:41 Active RT Aerosol Therapy [RC] 0800,1200,1600,1999 Care 01/11/21 22:41 Active Up With Assistance [RC] .PRN Care 01/11/21 22:41 Active Vital Signs [RC] 0000,0400,0800,1200,1600,1999 Care 01/11/21 22:41 Active Regular Diet [DIET] Diet 01/11/21 Breakfast Active CTA Chest W WO Contrast [Ang Chest] [CT] Stat Exams 01/11/21 21:06 Taken Chest 1V Frontal [CR] Routine Exams 01/11/21 Taken C-REACTIVE PROTEIN [CHEM] DAILY Lab 01/12/21 07:00 Ordered C-REACTIVE PROTEIN [CHEM] DAILY Lab 01/13/21 07:00 Ordered C-REACTIVE PROTEIN [CHEM] DAILY Lab 01/14/21 07:00 Ordered CBC WITH AUTO DIFF [HEME] DAILY Lab 01/12/21 07:00 Ordered CBC WITH AUTO DIFF [HEME] DAILY Lab 01/13/21 07:00 Ordered CBC WITH AUTO DIFF [HEME] DAILY Lab 01/14/21 07:00 Ordered COMPREHENSIVE METABOLIC PN,CMP [CHEM] DAILY Lab 01/12/21 07:00 Ordered COMPREHENSIVE METABOLIC PN,CMP [CHEM] DAILY Lab 01/13/21 07:00 Ordered COMPREHENSIVE METABOLIC PN,CMP [CHEM] DAILY Lab 01/14/21 07:00 Ordered D-DIMER QUANTITATIVE [COAG] DAILY Lab 01/12/21 07:00 Ordered D-DIMER QUANTITATIVE [COAG] DAILY Lab 01/13/21 07:00 Ordered D-DIMER QUANTITATIVE [COAG] DAILY Lab 01/14/21 07:00 Ordered Acetaminophen [TylenoL] Med 01/11/21 22:41 Active 650 mg PO Q4H PRN Albuterol/Ipratropium [DuoNeb 3.0-0.5 MG/3 ML] Med 01/11/21 22:41 Active 3 ml NEB QIDRT Enoxaparin [Lovenox] Med 01/12/21 09:00 Active 40 mg SUBCUT Q12H MVI, Adult with Vitamin K [Infuvite Adult] 10 ml Med 01/11/21 21:08 Active Folic Acid 1 mg Thiamine [Vitamin B-1] 100 mg Magnesium Sulfate [Magnesium Sulfate 50%] 2 gm Sodium Chloride 0.9% [Normal Saline] 1,000 ml IV ONETIME Sodium Chloride 0.9% [Normal Saline] 1,000 ml Med 01/11/21 22:41 Active IV ASDIRECTED Resuscitation Status Routine Resus Stat 01/11/21 21:37 Ordered Medication Orders Acetaminophen (Acetaminophen 325 Mg Tab) 650 mg PO Q4H PRN PRN Reason: Pain (Mild 1-3)/fever Albuterol (Albuterol 8 Gm Inhaler) 0 gm INH Q4H PRN PRN Reason: Shortness of Breath Albuterol (Albuterol 0.083% 2.5 Mg/3 Ml Neb Soln) 2.5 mg NEB Q4H PRN PRN Reason: Dyspnea Albuterol/Ipratropium (Albuterol/Ipratropium 3.0-0.5 Mg/3 Ml Neb Soln) 3 ml NEB QIDRT [place] Enoxaparin Sodium (Enoxaparin 40 Mg/0.4 Ml Syringe) 40 mg SUBCUT Q12H [place] Multivitamins/Minerals 10 ml/Folic Acid 1 mg/ Thiamine HCl 100 mg/ Magnesium Sulfate 2 gm / Sodium Chloride 1,015.2 mls @ 250 mls/hr IV ONETIME ONE Stop: 01/12/21 01:11 Last Admin: 01/11/21 21:15 Dose: 250 mls/hr Documented by: ANTONIO Sodium Chloride (Normal Saline) 1,000 mls @ 100 mls/hr IV ASDIRECTED [place] Levetiracetam (Levetiracetam 500 Mg Tab) 500 mg PO BID [place] Lorazepam (Lorazepam 2 Mg/Ml Syringe) 1 mg IVPUSH Q2H PRN PRN Reason: Withdrawal Symptoms Mometasone Furoate/Formoterol Fumar (Formoterol/Mometasone 200-5 Mcg 8.8 Gm Inhaler) 2 puff IH BID [place] Morphine Sulfate (Morphine 2 Mg/Ml Syringe) 1 mg IVPUSH Q2H PRN PRN Reason: Pain Nicotine (Nicotine 21 Mg/24 Hr Patch) 21 mg TRDERM DAILY ON LICENSE OF [facility] Labs: Laboratory Tests 01/11/21 01/11/21 01/11/21 Range/Units 19:30 19:30 19:30 WBC 3.2 L (5.0-10.0) 10^3/uL RBC 4.34 L (4.50-6.00) 10^6/uL Hgb 13.7 L (14.0-18.0) g/dL Hct 38.0 L (40.0-54.0) % MCV 87.6 (82.0-94.0) fL MCH 31.6 (27.0-32.0) pg MCHC 36.1 (33.0-38.0) g/dL RDW Coeff of Isabelle 14.1 (11.0-15.0) % Plt Count 117 L (150-400) 10^3/uL Neut % (Auto) 58.4 (35-85) % Lymph % (Auto) 18.8 (10-55) % [place] % (Auto) 22.5 H (0-16) % Eos % (Auto) 0.3 (0-5) % Baso % (Auto) 0 (0-3) % Neut # (Auto) 1.87 (1.80-7.00) 10^3/uL Lymph # (Auto) 0.60 L (1.00-4.80) 10^3/uL [place] # (Auto) 0.72 (0.00-0.80) 10^3/uL Eos # (Auto) 0.01 (0.00-0.45) 10^3/uL Baso # (Auto) 0.00 10^3/uL PT 10.3 (9.7-12.3) SEC INR 0.94 (0.92-1.18) D-Dimer, Quantitative (0.00-0.50) Sodium 123 L* (136-145) mEq/L Potassium 3.6 D (3.5-5.0) mEq/L Chloride 86 L (98-106) mEq/L Carbon Dioxide 25 (21-32) mmol/L BUN 8 (7-18) mg/dL Creatinine 0.8 (0.7-1.3) mg/dL Est Cr Clr Drug Dosing 97.47 mL/min Estimated GFR (MDRD) > 60 (>=60) mL/min Glucose 81 (75-99) mg/dL Lactic Acid (0.4-2.0) mmol/L Calcium 8.0 L (8.4-10.1) mg/dL Total Bilirubin 0.3 (0.0-1.0) mg/dL AST 380 H* (15-37) U/L ALT 232 H (12-78) U/L Alkaline Phosphatase 161 H (46-116) U/L Lactate Dehydrogenase 340 H (100-190) U/L Creatine Kinase 368 H (35-232) U/L Troponin I < 0.017 (0.00-0.06) ng/mL C-Reactive Protein 13.5 H (0.2-0.8) mg/dL Total Protein 7.7 (6.4-8.2) g/dL Albumin 3.0 L (3.4-5.0) g/dL SARS CoV-2 RNA Rapid ERNST (NEGATIVE) 01/11/21 01/11/21 01/11/21 Range/Units 19:30 19:31 20:30 WBC (5.0-10.0) 10^3/uL RBC (4.50-6.00) 10^6/uL Hgb (14.0-18.0) g/dL Hct (40.0-54.0) % MCV (82.0-94.0) fL MCH (27.0-32.0) pg MCHC (33.0-38.0) g/dL RDW Coeff of Isabelle (11.0-15.0) % Plt Count (150-400) 10^3/uL Neut % (Auto) (35-85) % Lymph % (Auto) (10-55) % [place] % (Auto) (0-16) % Eos % (Auto) (0-5) % Baso % (Auto) (0-3) % Neut # (Auto) (1.80-7.00) 10^3/uL Lymph # (Auto) (1.00-4.80) 10^3/uL [place] # (Auto) (0.00-0.80) 10^3/uL Eos # (Auto) (0.00-0.45) 10^3/uL Baso # (Auto) 10^3/uL PT (9.7-12.3) SEC INR (0.92-1.18) D-Dimer, Quantitative 2.81 H (0.00-0.50) Sodium (136-145) mEq/L Potassium (3.5-5.0) mEq/L Chloride (98-106) mEq/L Carbon Dioxide (21-32) mmol/L BUN (7-18) mg/dL Creatinine (0.7-1.3) mg/dL Est Cr Clr Drug Dosing mL/min Estimated GFR (MDRD) (>=60) mL/min Glucose (75-99) mg/dL Lactic Acid 2.9 H (0.4-2.0) mmol/L Calcium (8.4-10.1) mg/dL Total Bilirubin (0.0-1.0) mg/dL AST (15-37) U/L ALT (12-78) U/L Alkaline Phosphatase (46-116) U/L Lactate Dehydrogenase (100-190) U/L Creatine Kinase (35-232) U/L Troponin I (0.00-0.06) ng/mL C-Reactive Protein (0.2-0.8) mg/dL Total Protein (6.4-8.2) g/dL Albumin (3.4-5.0) g/dL SARS CoV-2 RNA Rapid ERNST Positive H (NEGATIVE) Meds: Medications Generic Name Dose Route Start Last Admin Trade Name Freq PRN Reason Stop Dose Admin Acetaminophen 650 mg 01/11/21 22:41 Acetaminophen 325 Mg Tab PO Q4H PRN Pain (Mild 1-3)/fever Albuterol 0 gm 01/11/21 23:10 Albuterol 8 Gm Inhaler INH Q4H PRN Shortness of Breath Albuterol 2.5 mg 01/11/21 23:11 Albuterol 0.083% 2.5 Mg/3 Ml Neb Soln NEB Q4H PRN Dyspnea Albuterol/Ipratropium 3 ml 01/11/21 22:41 Albuterol/Ipratropium 3.0-0.5 Mg/3 Ml Neb Soln NEB QIDRT ON LICENSE OF [facility] Enoxaparin Sodium 40 mg 01/12/21 09:00 Enoxaparin 40 Mg/0.4 Ml Syringe SUBCUT Q12H ON LICENSE OF [facility] Multivitamins/Minerals 10 ml/ 1,015.2 mls @ 250 mls/hr 01/11/21 21:08 01/11/21 21:15 Folic Acid 1 mg/ Thiamine HCl IV 01/12/21 01:11 250 mls/hr 100 mg/ Magnesium Sulfate 2 gm ONETIME ONE Administration / Sodium Chloride Sodium Chloride 1,000 mls @ 100 mls/hr 01/11/21 22:41 Normal Saline IV ASDIRECTED ON LICENSE OF [facility] Levetiracetam 500 mg 01/11/21 23:15 Levetiracetam 500 Mg Tab PO BID ON LICENSE OF [facility] Lorazepam 1 mg 01/11/21 23:10 Lorazepam 2 Mg/Ml Syringe IVPUSH Q2H PRN Withdrawal Symptoms Mometasone Furoate/Formoterol Fumar 2 puff 01/12/21 08:00 Formoterol/Mometasone 200-5 Mcg 8.8 Gm Inhaler IH BID ON LICENSE OF [facility] Morphine Sulfate 1 mg 01/11/21 23:12 Morphine 2 Mg/Ml Syringe IVPUSH Q2H PRN Pain Nicotine 21 mg 01/12/21 08:00 Nicotine 21 Mg/24 Hr Patch TRDERM DAILY ON LICENSE OF [facility] Discontinued Medications Generic Name Dose Route Start Last Admin Trade Name Freq PRN Reason Stop Dose Admin Aspirin 324 mg 01/11/21 19:32 01/11/21 19:34 Aspirin 81 Mg Tab.Chew PO 01/11/21 19:33 324 mg ONETIME ONE Administration Iopamidol 100 ml 01/11/21 21:47 01/11/21 21:47 Iopamidol 755 Mg/Ml 100 Ml Bottle IVPUSH 01/11/21 21:48 100 ml ONETIME ONE Administration Nitroglycerin 0.4 mg 01/11/21 19:32 01/11/21 19:35 Nitroglycerin 0.4 Mg Tab.Sl SL 01/11/21 19:33 0.4 mg ONETIME ONE Administration - Re-Assessments/Exams Free Text/Narrative Re-Assessment/Exam: 01/11/21 20:[address] Cardozo, hospitalist at [facility] regarding potential transfer vs. recommendations for care. Recommend IVF, Lovenox BID, Duonebs. Will also give patient banana bag given ETOH dependence. Reports last drink was earlier today. Departure - Departure Time of Disposition: 21:58 Disposition: Admitted As Inpatient 64 Condition: Fair Clinical Impression: Pneumonia due to COVID-19 virus, Hyponatremia, Seizure disorder, Elevated liver enzymes Ribs, multiple fractures Qualifiers: Encounter type: initial encounter Fracture type: closed Laterality: left Qualified Code(s): S22.42XA - Multiple fractures of ribs, left side, initial encounter for closed fracture EtOH dependence Qualifiers: Substance use status: uncomplicated Qualified Code(s): F10.20 - Alcohol dependence, uncomplicated - Discharge Information *PRESCRIPTION DRUG MONITORING PROGRAM REVIEWED*: Not Applicable *COPY OF PRESCRIPTION DRUG MONITORING REPORT IN PATIENT ANH: Not Applicable Sepsis Event Note (ED) - Evaluation Sepsis Screening Result: No Definite Risk - Focused Exam Vital Signs: Vital Signs Temp Pulse Pulse Resp BP BP Pulse Ox 01/11/21 19:35 98 131/89 01/11/21 19:30 97 16 115/90 94 L 01/11/21 19:15 93 18 131/89 94 L 01/11/21 19:00 97.7 F 96 18 144/91 H 95 - Problem List & Annotations (1) Pneumonia due to COVID-19 virus SNOMED Code(s): 927364028191053990 Code(s): U07.1 - COVID-19; J12.82 - PNEUMONIA DUE TO CORONAVIRUS DISEASE 2019 Status: Acute Current Visit: Yes (2) Elevated liver enzymes SNOMED Code(s): 395017085 Code(s): R74.8 - ABNORMAL LEVELS OF OTHER SERUM ENZYMES Status: Acute Current Visit: Yes (3) EtOH dependence SNOMED Code(s): 29291465 Code(s): F10.20 - ALCOHOL DEPENDENCE, UNCOMPLICATED Status: Acute Current Visit: Yes Qualifiers: Substance use status: uncomplicated Qualified Code(s): F10.20 - Alcohol dependence, uncomplicated (4) Hyponatremia SNOMED Code(s): 11220199 Code(s): E87.1 - HYPO-OSMOLALITY AND HYPONATREMIA Status: Acute Priority: High Current Visit: Yes (5) Ribs, multiple fractures SNOMED Code(s): 9149541 Code(s): S22.49XA - MULTIPLE FRACTURES OF RIBS, UNSP SIDE, INIT FOR CLOS FX Status: Acute Current Visit: Yes Qualifiers: Encounter type: initial encounter Fracture type: closed Laterality: left Qualified Code(s): S22.42XA - Multiple fractures of ribs, left side, initial encounter for closed fracture (6) Seizure disorder SNOMED Code(s): 242450349 Code(s): G40.909 - EPILEPSY, UNSP, NOT INTRACTABLE, WITHOUT STATUS EPILEPTICUS Status: Acute Current Visit: Yes - Problem List Review Problem List Initiated/Reviewed/Updated: Yes - My Orders Last 24 Hours: My Active Orders 01/11/21 Chest 1V Frontal [CR] Routine 01/11/21 Breakfast Regular Diet [DIET] 01/11/21 21:06 CTA Chest W WO Contrast [Ang Chest] [CT] Stat 01/11/21 21:08 MVI, Adult with Vitamin K [Infuvite Adult] 10 ml Folic Acid 1 mg Thiamine [Vitamin B-1] 100 mg Magnesium Sulfate [Magnesium Sulfate 50%] 2 gm Sodium Chloride 0.9% [Normal Saline] 1,000 ml IV ONETIME 01/11/21 21:37 Resuscitation Status Routine 01/11/21 22:41 Acetaminophen [TylenoL] 650 mg PO Q4H PRN Albuterol/Ipratropium [DuoNeb 3.0-0.5 MG/3 ML] 3 ml NEB QIDRT Sodium Chloride 0.9% [Normal Saline] 1,000 ml IV ASDIRECTED 01/11/21 22:41 Patient Status [ADT] Routine Cardiac Monitoring [RC] 0800,1999 Oxygen Therapy [RC] .PRN RT Aerosol Therapy [RC] 0800,1200,1600,1999 Up With Assistance [RC] .PRN Vital Signs [RC] 0000,0400,0800,1200,1600,2000 01/12/21 07:00 C-REACTIVE PROTEIN [CHEM] DAILY CBC WITH AUTO DIFF [HEME] DAILY COMPREHENSIVE METABOLIC PN,CMP [CHEM] DAILY D-DIMER QUANTITATIVE [COAG] DAILY 01/12/21 09:00 Enoxaparin [Lovenox] 40 mg SUBCUT Q12H 01/13/21 07:00 C-REACTIVE PROTEIN [CHEM] DAILY CBC WITH AUTO DIFF [HEME] DAILY COMPREHENSIVE METABOLIC PN,CMP [CHEM] DAILY D-DIMER QUANTITATIVE [COAG] DAILY 01/14/21 07:00 C-REACTIVE PROTEIN [CHEM] DAILY CBC WITH AUTO DIFF [HEME] DAILY COMPREHENSIVE METABOLIC PN,CMP [CHEM] DAILY D-DIMER QUANTITATIVE [COAG] DAILY - Assessment/Plan Last 24 Hours: My Active Orders 01/11/21 Chest 1V Frontal [CR] Routine 01/11/21 Breakfast Regular Diet [DIET] 01/11/21 21:06 CTA Chest W WO Contrast [Ang Chest] [CT] Stat 01/11/21 21:08 MVI, Adult with Vitamin K [Infuvite Adult] 10 ml Folic Acid 1 mg Thiamine [Vitamin B-1] 100 mg Magnesium Sulfate [Magnesium Sulfate 50%] 2 gm Sodium Chloride 0.9% [Normal Saline] 1,000 ml IV ONETIME 01/11/21 21:37 Resuscitation Status Routine 01/11/21 22:41 Acetaminophen [TylenoL] 650 mg PO Q4H PRN Albuterol/Ipratropium [DuoNeb 3.0-0.5 MG/3 ML] 3 ml NEB QIDRT Sodium Chloride 0.9% [Normal Saline] 1,000 ml IV ASDIRECTED 01/11/21 22:41 Patient Status [ADT] Routine Cardiac Monitoring [RC] 0800,2000 Oxygen Therapy [RC] .PRN RT Aerosol Therapy [RC] 0800,1200,1600,2000 Up With Assistance [RC] .PRN Vital Signs [RC] 0000,0400,0800,1200,1600,2000 01/12/21 07:00 C-REACTIVE PROTEIN [CHEM] DAILY CBC WITH AUTO DIFF [HEME] DAILY COMPREHENSIVE METABOLIC PN,CMP [CHEM] DAILY D-DIMER QUANTITATIVE [COAG] DAILY 01/12/21 09:00 Enoxaparin [Lovenox] 40 mg SUBCUT Q12H 01/13/21 07:00 C-REACTIVE PROTEIN [CHEM] DAILY CBC WITH AUTO DIFF [HEME] DAILY COMPREHENSIVE METABOLIC PN,CMP [CHEM] DAILY D-DIMER QUANTITATIVE [COAG] DAILY 01/14/21 07:00 C-REACTIVE PROTEIN [CHEM] DAILY CBC WITH AUTO DIFF [HEME] DAILY COMPREHENSIVE METABOLIC PN,CMP [CHEM] DAILY D-DIMER QUANTITATIVE [COAG] DAILY Assessment:: Bilateral lower lobe pneumonia from Covid-19 Rib Fractures, Left 5-7 Hyponatremia Seizure Disorder ETOH Dependence Plan: Covid positive. Labs significant for WBC 3.2, plt 117, D-dimer 2.81, Na 123, Lactic acid 2.9, AST 380, ALT 232, Alk phos 161, and CRP 13.5. Chest CTA negative for PE but does reveal bilateral LL infiltrate, as well as left sided rib fractures 5-7. Consulted with [facility] hospitalist. Recommends BID dosing Lovenox, IVF and duonebs. Will admit to acute. See orders. Patient has been maintaining O2 sats on RA throughout ED stay. Will do Q4hr CIWAs given concern for withdrawal. Last drink was this afternoon. Banana bag administered. Lorazepam as needed. Does have hx seizure disorder which has been well managed with Keppra. Does wish to be code level 1. Discussed need for transfer to higher level of care for any worsening of symptoms. Patient transferred to floor in stable condition.
[2021-01-11] MEDS ORDERED: MVI, Adult with Vitamin K 10 ML, Folic Acid 1 MG, Thiamine 100 MG, Magnesium Sulfate 2 ... IV ONE ×5 (21:08)
[2021-01-11] MEDS ORDERED: Iopamidol 755 Mg/ML 100 ML Bottle IVPUSH ONE (21:47)
[2021-01-11] MEDS ORDERED: LORazepam 2 MG/ML Syringe IVPUSH PRN (23:10)
[2021-01-11] MEDS ORDERED: Albuterol 8 GM Inhaler INH PRN (23:10)
[2021-01-11] MEDS ORDERED: Albuterol 0.083% 2.5 MG/3 ML Neb Soln NEB PRN (23:11)
[2021-01-11] MEDS ORDERED: Morphine 2 MG/ML SYRINGE IVPUSH PRN (23:12)
[2021-01-11] MEDS: Albuterol/Ipratropium 3.0-0.5 MG/3 ML Neb Soln NEB SCH (23:31)
[2021-01-11] MEDS: levETIRAcetam 500 MG Tab PO SCH (23:32)
[2021-01-11] MEDS ORDERED: Enoxaparin 40 MG/0.4 ML Syringe SUBCUT SCH (23:45)
[2021-01-12] MEDS: Sodium Chloride 0.9% 1,000 ML IV SCH ×3 (01:43→23:41)
[2021-01-12] MEDS: Acetaminophen 325 MG Tab PO PRN ×4 (01:50→23:42)
[2021-01-12] MEDS ORDERED: Enoxaparin 40 MG/0.4 ML Syringe SUBCUT SCH ×2 (06:45→08:00)
[2021-01-12 07:57] LABS: CHLORIDE,CL 90 mEq/L (98-106); SODIUM,NA 125 mEq/L (136-145)
[2021-01-12] MEDS: levETIRAcetam 500 MG Tab PO SCH ×2 (08:21→20:04)
[2021-01-12] MEDS: Albuterol/Ipratropium 3.0-0.5 MG/3 ML Neb Soln NEB SCH ×4 (08:21→20:04)
[2021-01-12] MEDS: Enoxaparin 40 MG/0.4 ML Syringe SUBCUT SCH ×2 (08:25→20:04)
[2021-01-12] MEDS: Formoterol/Mometasone 200-5 MCG 8.8 GM Inhaler IH SCH ×2 (08:26→20:05)
[2021-01-12] MEDS: Nicotine 21 MG/24 Hr Patch TRDERM SCH (08:26)
[2021-01-12] MEDS: chlordiazePOXIDE 10 MG Cap PO SCH ×3 (09:07→20:04)
[2021-01-12] MEDS: cefTRIAXone 1 GM Vial IVPUSH SCH (09:07)
[2021-01-12] MEDS: Azithromycin 500 MG in Sodium Chloride 0.9% 250 ML IV SCH (09:08)
--- NOTE | 2021-01-12 10:50 | PN ---
DATE: 01/12/2021 S: Mr. Kearney was seen by Hilda, admitted yesterday for COVID pneumonia. He is a 50-year-old male, well known to me with a history of chronic alcoholism. He has had a history of Wernicke encephalopathy in the past as well. He had an elevated D-dimer and ultimately a CT scan showed a possible right lower lobe pneumonia I am told and yet to see his final report. He did spike a temp last night up to 101.6. He is not requiring any supplemental O2. I did review his lab work. His white count was low at 3.1. His D-dimer actually is down, it was 2.81 on admit, 1.82 today. He was hyponatremic with a sodium of 123, is up to 125 on some low rate IV fluids, and for the most part other than his chronically elevated liver functions, his lab work appears stable. O: GENERAL: When I examine him, he is pleasant, cooperative, converses fully without shortness of breath. HEENT: Grossly benign. NECK: Veins are flat. LUNGS: Sounds are rhonchus throughout, worse in the right base with maybe some rales there. CARDIAC: Tones are regular. ABDOMEN: Nontender. Bowel sounds are present. EXTREMITIES: No peripheral edema is seen. ASSESSMENT: 1. CORONAVIRUS DISEASE 2019 PNEUMONIA. 2. CHRONIC ALCOHOLISM. 3. CHRONICALLY ELEVATED LIVER FUNCTION TESTS. 4. HYPONATREMIA. 5. HISTORY OF SEIZURE DISORDER. P: The patient will be continued on his chronic respiratory treatments. I am going to add Zithromax and Rocephin to his regimen. He is on Lovenox dose once a day. He does not meet qualification for full anticoagulation, and given his lack of need for O2, he does not at this time qualify for remdesivir. We will continue to provide IV fluids to correct his hyponatremia at a slow and cautious rate. I am going to start him on benzo to prevent DTs. PETERSON/MODL /[id number]
[2021-01-13] MEDS: Albuterol/Ipratropium 3.0-0.5 MG/3 ML Neb Soln NEB SCH ×4 (07:45→20:06)
[2021-01-13 07:46] LABS: CHLORIDE,CL 99 mEq/L (98-106); SODIUM,NA 132 mEq/L (136-145)
[2021-01-13] MEDS: Acetaminophen 325 MG Tab PO PRN ×3 (07:46→20:08)
[2021-01-13] MEDS: chlordiazePOXIDE 10 MG Cap PO SCH ×3 (07:46→20:06)
[2021-01-13] MEDS: levETIRAcetam 500 MG Tab PO SCH ×2 (07:46→20:06)
[2021-01-13] MEDS: cefTRIAXone 1 GM Vial IVPUSH SCH (07:46)
[2021-01-13] MEDS: Enoxaparin 40 MG/0.4 ML Syringe SUBCUT SCH ×2 (07:47→20:07)
[2021-01-13] MEDS: Nicotine 21 MG/24 Hr Patch TRDERM SCH (07:48)
[2021-01-13] MEDS: Formoterol/Mometasone 200-5 MCG 8.8 GM Inhaler IH SCH ×2 (07:48→20:06)
[2021-01-13] MEDS: Azithromycin 500 MG in Sodium Chloride 0.9% 250 ML IV SCH (07:49)
--- NOTE | 2021-01-13 15:35 | PCM.PN ---
- General Info Date of Service: 01/13/21 Admission Dx/Problem (Free Text): COVID Pneumonia Subjective Update: patient states feeling unsteady and more shaky today. Admits to being incontinent of stool at present. Relates IV pole inhibits him from getting to the bathroom. Denies loose stools, felt was going to pass gas but had incontinent stool. Temp 99.2. blood pressure stable. Oxygen sat is 96-100% on room air. Appetite is good. Does feel short of breath and wheezy at times. Functional Status: Reports: Pain Controlled, Tolerating Diet, Ambulating - Review of Systems General: Reports: Weakness, Fatigue, Malaise HEENT: Denies: Ear Pain, Sinus Congestion, Rhinitis Pulmonary: Reports: Shortness of Breath, Cough, Wheezing Cardiovascular: Denies: Chest Pain, Edema, Lightheadedness Gastrointestinal: Denies: Abdominal Pain, Nausea, Vomiting Genitourinary: Reports: No Symptoms Musculoskeletal: Reports: No Symptoms Skin: Reports: No Symptoms Neurological: Reports: No Symptoms Psychiatric: Reports: Anxiety - Patient Data Vitals - Most Recent: Last Vital Signs Temp 99.2 F 01/13/21 08:00 Pulse 83 01/13/21 08:00 Resp 20 01/13/21 08:00 BP 142/88 H 01/13/21 08:00 Pulse Ox 96 01/13/21 08:00 Weight - Most Recent: 145 lb Lab Results Last 24 Hours: Laboratory Results - last 24 hr 01/13/21 01/13/21 01/13/21 Range/Units 07:20 07:20 07:20 WBC 2.5 L (5.0-10.0) 10^3/uL RBC 3.65 L (4.50-6.00) 10^6/uL Hgb 11.4 L (14.0-18.0) g/dL Hct 32.6 L (40.0-54.0) % MCV 89.3 (82.0-94.0) fL MCH 31.2 (27.0-32.0) pg MCHC 35.0 (33.0-38.0) g/dL RDW Coeff of Isabelle 14.7 (11.0-15.0) % Plt Count 159 (150-400) 10^3/uL Add Manual Diff Yes Neutrophils % (Manual) 46 (35-85) % Lymphocytes % (Manual) 32 (21-55) % Monocytes % (Manual) 20 H (2-12) % Eosinophils % (Manual) 2 (0-5) % D-Dimer, Quantitative 1.56 H (0.00-0.50) Sodium 132 L (136-145) mEq/L Potassium 3.3 L (3.5-5.0) mEq/L Chloride 99 (98-106) mEq/L Carbon Dioxide 23 (21-32) mmol/L BUN 5 L (7-18) mg/dL Creatinine 0.5 L (0.7-1.3) mg/dL Est Cr Clr Drug Dosing 155.96 mL/min Estimated GFR (MDRD) > 60 (>=60) mL/min Glucose 85 (75-99) mg/dL Lactic Acid (0.4-2.0) mmol/L Calcium 7.5 L (8.4-10.1) mg/dL Total Bilirubin 0.3 (0.0-1.0) mg/dL AST 74 H (15-37) U/L ALT 110 H (12-78) U/L Alkaline Phosphatase 111 (46-116) U/L C-Reactive Protein 9.7 H (0.2-0.8) mg/dL Total Protein 5.9 L (6.4-8.2) g/dL Albumin 2.3 L (3.4-5.0) g/dL 01/13/ Range/Units 07:20 WBC (5.0-10.0) 10^3/uL RBC (4.50-6.00) 10^6/uL Hgb (14.0-18.0) g/dL Hct (40.0-54.0) % MCV (82.0-94.0) fL MCH (27.0-32.0) pg MCHC (33.0-38.0) g/dL RDW Coeff of Isabelle (11.0-15.0) % Plt Count (150-400) 10^3/uL Add Manual Diff Neutrophils % (Manual) (35-85) % Lymphocytes % (Manual) (21-55) % Monocytes % (Manual) (2-12) % Eosinophils % (Manual) (0-5) % D-Dimer, Quantitative (0.00-0.50) Sodium (136-145) mEq/L Potassium (3.5-5.0) mEq/L Chloride (98-106) mEq/L Carbon Dioxide (21-32) mmol/L BUN (7-18) mg/dL Creatinine (0.7-1.3) mg/dL Est Cr Clr Drug Dosing mL/min Estimated GFR (MDRD) (>=60) mL/min Glucose (75-99) mg/dL Lactic Acid 0.9 (0.4-2.0) mmol/L Calcium (8.4-10.1) mg/dL Total Bilirubin (0.0-1.0) mg/dL AST (15-37) U/L ALT (12-78) U/L Alkaline Phosphatase (46-116) U/L C-Reactive Protein (0.2-0.8) mg/dL Total Protein (6.4-8.2) g/dL Albumin (3.4-5.0) g/dL Med Orders - Current: Current Medications Acetaminophen (Acetaminophen 325 Mg Tab) 650 mg PO Q4H PRN PRN Reason: Pain (Mild 1-3)/fever Last Admin: 01/13/21 13:52 Dose: 650 mg Documented by: Albuterol (Albuterol 8 Gm Inhaler) 0 gm INH Q4H PRN PRN Reason: Shortness of Breath Albuterol (Albuterol 0.083% 2.5 Mg/3 Ml Neb Soln) 2.5 mg NEB Q4H PRN PRN Reason: Dyspnea Albuterol/Ipratropium (Albuterol/Ipratropium 3.0-0.5 Mg/3 Ml Neb Soln) 3 ml NEB QIDRT [facility] Last Admin: 01/13/21 13:52 Dose: 3 ml Documented by: Ceftriaxone Sodium (Ceftriaxone 1 Gm Vial) 1 gm IVPUSH DAILY [facility] Last Admin: 01/13/21 07:46 Dose: 1 gm Documented by: Chlordiazepoxide HCl (Chlordiazepoxide 10 Mg Cap) 10 mg PO TID [facility] Last Admin: 01/13/21 13:52 Dose: 10 mg Documented by: Enoxaparin Sodium (Enoxaparin 40 Mg/0.4 Ml Syringe) 40 mg SUBCUT Q12H [facility] Last Admin: 01/13/21 07:47 Dose: 40 mg Documented by: Azithromycin 500 mg/ Sodium (Chloride) 250 mls @ 250 mls/hr IV DAILY [facility] Last Admin: 01/13/21 07:49 Dose: 250 mls/hr Documented by: Levetiracetam (Levetiracetam 500 Mg Tab) 500 mg PO BID [facility] Last Admin: 01/13/21 07:46 Dose: 500 mg Documented by: Lorazepam (Lorazepam 2 Mg/Ml Syringe) 1 mg IVPUSH Q2H PRN PRN Reason: Withdrawal Symptoms Mometasone Furoate/Formoterol Fumar (Formoterol/Mometasone 200-5 Mcg 8.8 Gm Inhaler) 2 puff IH BID [facility] Last Admin: 01/13/21 07:48 Dose: 2 puff Documented by: Morphine Sulfate (Morphine 2 Mg/Ml Syringe) 1 mg IVPUSH Q2H PRN PRN Reason: Pain Last Admin: 01/12/21 01:49 Dose: 1 mg Documented by: Nicotine (Nicotine 21 Mg/24 Hr Patch) 21 mg TRDERM DAILY [facility] Last Admin: 01/13/21 07:48 Dose: 21 mg Documented by: Discontinued Medications Aspirin (Aspirin 81 Mg Tab.Chew) 324 mg PO ONETIME ONE Stop: 01/11/21 19:33 Last Admin: 01/11/21 19:34 Dose: 324 mg Documented by: Enoxaparin Sodium (Enoxaparin 40 Mg/0.4 Ml Syringe) 40 mg SUBCUT Q12H [facility] Last Admin: 01/11/21 23:52 Dose: 40 mg Documented by: Enoxaparin Sodium (Enoxaparin 40 Mg/0.4 Ml Syringe) 40 mg SUBCUT Q12H [facility] Last Admin: 01/12/21 19:27 Dose: Not Given Documented by: Multivitamins/Minerals 10 ml/Folic Acid 1 mg/ Thiamine HCl 100 mg/ Magnesium Rodriguez lfate 2 gm / Sodium Chloride 1,015.2 mls @ 250 mls/hr IV ONETIME ONE Stop: 01/12/21 01:11 Last Admin: 01/11/21 21:15 Dose: 250 mls/hr Documented by: Sodium Chloride (Normal Saline) 1,000 mls @ 75 mls/hr IV ASDIRECTED [facility] Last Admin: 01/12/21 23:41 Dose: 100 mls/hr Documented by: Iopamidol (Iopamidol 755 Mg/Ml 100 Ml Bottle) 100 ml IVPUSH ONETIME ONE Stop: 01/11/21 21:48 Last Admin: 01/11/21 21:47 Dose: 100 ml Documented by: Nitroglycerin (Nitroglycerin 0.4 Mg Tab.Sl) 0.4 mg SL ONETIME ONE Stop: 01/11/21 19:33 Last Admin: 01/11/21 19:35 Dose: 0.4 mg Documented by: - Exam General: Alert, Oriented, Cooperative HEENT: Mucous Membr. Moist/[place] Neck: Supple Lungs: Decreased Breath Sounds, Wheezing Cardiovascular: Regular Rate, Regular Rhythm GI/Abdominal Exam: Normal Bowel Sounds, Soft, Non-Tender Extremities: Normal Inspection, No Pedal Edema Skin: Warm, Dry Neurological: No New Focal Deficit - Patient Data Lab Results Last 24 hrs: Laboratory Results - last 24 hr 01/13/21 01/13/21 01/13/21 Range/Units 07:20 07:20 07:20 WBC 2.5 L (5.0-10.0) 10^3/uL RBC 3.65 L (4.50-6.00) 10^6/uL Hgb 11.4 L (14.0-18.0) g/dL Hct 32.6 L (40.0-54.0) % MCV 89.3 (82.0-94.0) fL MCH 31.2 (27.0-32.0) pg MCHC 35.0 (33.0-38.0) g/dL RDW Coeff of Isabelle 14.7 (11.0-15.0) % Plt Count 159 (150-400) 10^3/uL Add Manual Diff Yes Neutrophils % (Manual) 46 (35-85) % Lymphocytes % (Manual) 32 (21-55) % Monocytes % (Manual) 20 H (2-12) % Eosinophils % (Manual) 2 (0-5) % D-Dimer, Quantitative 1.56 H (0.00-0.50) Sodium 132 L (136-145) mEq/L Potassium 3.3 L (3.5-5.0) mEq/L Chloride 99 (98-106) mEq/L Carbon Dioxide 23 (21-32) mmol/L BUN 5 L (7-18) mg/dL Creatinine 0.5 L (0.7-1.3) mg/dL Est Cr Clr Drug Dosing 155.96 mL/min Estimated GFR (MDRD) > 60 (>=60) mL/min Glucose 85 (75-99) mg/dL Lactic Acid (0.4-2.0) mmol/L Calcium 7.5 L (8.4-10.1) mg/dL Total Bilirubin 0.3 (0.0-1.0) mg/dL AST 74 H (15-37) U/L ALT 110 H (12-78) U/L Alkaline Phosphatase 111 (46-116) U/L C-Reactive Protein 9.7 H (0.2-0.8) mg/dL Total Protein 5.9 L (6.4-8.2) g/dL Albumin 2.3 L (3.4-5.0) g/dL 01/13/21 Range/Units 07:20 WBC (5.0-10.0) 10^3/uL RBC (4.50-6.00) 10^6/uL Hgb (14.0-18.0) g/dL Hct (40.0-54.0) % MCV (82.0-94.0) fL MCH (27.0-32.0) pg MCHC (33.0-38.0) g/dL RDW Coeff of Isabelle (11.0-15.0) % Plt Count (150-400) 10^3/uL Add Manual Diff Neutrophils % (Manual) (35-85) % Lymphocytes % (Manual) (21-55) % Monocytes % (Manual) (2-12) % Eosinophils % (Manual) (0-5) % D-Dimer, Quantitative (0.00-0.50) Sodium (136-145) mEq/L Potassium (3.5-5.0) mEq/L Chloride (98-106) mEq/L Carbon Dioxide (21-32) mmol/L BUN (7-18) mg/dL Creatinine (0.7-1.3) mg/dL Est Cr Clr Drug Dosing mL/min Estimated GFR (MDRD) (>=60) mL/min Glucose (75-99) mg/dL Lactic Acid 0.9 (0.4-2.0) mmol/L Calcium (8.4-10.1) mg/dL Total Bilirubin (0.0-1.0) mg/dL AST (15-37) U/L ALT (12-78) U/L Alkaline Phosphatase (46-116) U/L C-Reactive Protein (0.2-0.8) mg/dL Total Protein (6.4-8.2) g/dL Albumin (3.4-5.0) g/dL Result Diagrams: 01/13/21 07:20 01/13/21 07:20 Sepsis Event Note - Evaluation Sepsis Screening Result: No Definite Risk - Focused Exam Vital Signs: Vital Signs Temp Pulse Resp BP BP Pulse Ox 01/13/21 08:00 99.2 F 83 20 142/88 H 96 01/13/21 04:00 98.5 F 80 20 146/75 H 100 - Problem List & Annotations (1) EtOH dependence SNOMED Code(s): 18000673 Code(s): F10.20 - ALCOHOL DEPENDENCE, UNCOMPLICATED Status: Acute Priority: High Current Visit: Yes Qualifiers: Substance use status: uncomplicated Qualified Code(s): F10.20 - Alcohol dependence, uncomplicated (2) Hyponatremia SNOMED Code(s): 74876841 Code(s): E87.1 - HYPO-OSMOLALITY AND HYPONATREMIA Status: Acute Priority: High Current Visit: Yes (3) Pneumonia due to COVID-19 virus SNOMED Code(s): 135544172138055660 Code(s): U07.1 - COVID-19; J12.82 - PNEUMONIA DUE TO CORONAVIRUS DISEASE 2019 Status: Acute Priority: High Current Visit: Yes (4) Seizure disorder SNOMED Code(s): 709338348 Code(s): G40.909 - EPILEPSY, UNSP, NOT INTRACTABLE, WITHOUT STATUS EPILEPTICUS Status: Acute Priority: High Current Visit: Yes - Problem List Review Problem List Initiated/Reviewed/Updated: Yes - Assessment Assessment:: Covid 19 with pneumonia Hyponatremia Alcohol dependence - Plan Plan:: patient's labs are stable today with WBC at 2.5. Hemoglobin 11.4. Sodium improved to 132, potassium 3.3. CRP 9.7. D-dimer is improving. Librium was started yesterday, encouraged to use Ativan today as needed for anxiety. Stop IV fluids. Continue IV Rocephin and Zithromax. Ambulate.
[2021-01-14] MEDS: Acetaminophen 325 MG Tab PO PRN ×2 (03:43→19:40)
[2021-01-14 08:13] LABS: CHLORIDE,CL 100 mEq/L (98-106); SODIUM,NA 135 mEq/L (136-145)
[2021-01-14] MEDS: Azithromycin 500 MG in Sodium Chloride 0.9% 250 ML IV SCH (08:13)
[2021-01-14] MEDS: cefTRIAXone 1 GM Vial IVPUSH SCH (08:13)
[2021-01-14] MEDS: Nicotine 21 MG/24 Hr Patch TRDERM SCH (08:14)
[2021-01-14] MEDS: Enoxaparin 40 MG/0.4 ML Syringe SUBCUT SCH ×2 (08:14→19:40)
[2021-01-14] MEDS: levETIRAcetam 500 MG Tab PO SCH ×2 (08:14→19:39)
[2021-01-14] MEDS: chlordiazePOXIDE 10 MG Cap PO SCH ×3 (08:14→19:39)
[2021-01-14] MEDS: Albuterol/Ipratropium 3.0-0.5 MG/3 ML Neb Soln NEB SCH ×4 (08:14→19:41)
[2021-01-14] MEDS: Formoterol/Mometasone 200-5 MCG 8.8 GM Inhaler IH SCH ×2 (08:15→19:41)
--- NOTE | 2021-01-14 13:30 | PN ---
DATE: 01/14/2021 S: Jose had a pretty good day. He is a little unsteady on his feet, likely related to Librium use. He did have some diarrhea. He has basically had stable vital signs and saturations are maintained in the upper 90s on room air and did have a slight drop in his potassium related to this diarrhea episode, and he is still little bit low and we will replace that orally. He is not requiring any supplemental fluids as he is taking good intake. His creatinines have been stable. His D-dimers are on their way down. O: GENERAL: Exam shows him to be a pleasant and cooperative. NECK: Supple. Veins are flat. LUNGS: Sounds remain rhonchus, but no audible rales. CARDIAC: Tones are regular. ABDOMEN: Soft. EXTREMITIES: No peripheral edema is seen. ASSESSMENT: 1. COVID-19 PNEUMONITIS. 2. CHRONIC ALCOHOLISM WITH HISTORY OF SEIZURES. 3. HYPONATREMIA, IMPROVED. 4. HYPOKALEMIA. 5. ELEVATED LIVER FUNCTIONS RELATED TO ALCOHOLISM, IMPROVED. P: The patient clinically looks well. We are going to try to get him up and ambulating today. I suspect he should be able to be discharged home in the near future, hopefully by tomorrow morning. PETERSON/ANG /[id number]
[2021-01-14] MEDS ORDERED: Magnesium Sulfate (4.06 MEQ/ML) 1 GM/2 ML SDV IM ONE (16:22)
[2021-01-14] MEDS: Potassium Chloride 10 MEQ Tab.ER PO SCH (17:03)
[2021-01-14] MEDS ORDERED: Magnesium Sulfate (4.06 MEQ/ML) 1 GM/2 ML SDV ONE (17:52)
[2021-01-15 07:31] LABS: CHLORIDE,CL 102 mEq/L (98-106); SODIUM,NA 137 mEq/L (136-145)
[2021-01-15] MEDS: chlordiazePOXIDE 10 MG Cap PO SCH (07:41)
[2021-01-15] MEDS: Albuterol/Ipratropium 3.0-0.5 MG/3 ML Neb Soln NEB SCH ×2 (07:41→13:00)
[2021-01-15] MEDS: Potassium Chloride 10 MEQ Tab.ER PO SCH (07:41)
[2021-01-15] MEDS: Enoxaparin 40 MG/0.4 ML Syringe SUBCUT SCH (07:42)
[2021-01-15] MEDS: Azithromycin 500 MG in Sodium Chloride 0.9% 250 ML IV SCH (07:42)
[2021-01-15] MEDS: cefTRIAXone 1 GM Vial IVPUSH SCH (07:42)
[2021-01-15] MEDS: Formoterol/Mometasone 200-5 MCG 8.8 GM Inhaler IH SCH (07:42)
[2021-01-15] MEDS: levETIRAcetam 500 MG Tab PO SCH (07:42)
[2021-01-15] MEDS: Nicotine 21 MG/24 Hr Patch TRDERM SCH (07:42)
[2021-01-15 08:55] VITALS: BP 157/79; PULSE 74
--- NOTE | 2021-01-15 13:28 | DISCH ---
ADMISSION DIAGNOSES: 1. Coronavirus disease pneumonia. 2. Chronic alcohol use. 3. Elevated liver enzymes secondary to above. 4. Hyponatremia. 5. Hypokalemia. DISCHARGE DIAGNOSIS: 1. CORONAVIRUS DISEASE PNEUMONIA. 2. CHRONIC ALCOHOL ABUSE. 3. SEIZURE DISORDER. 4. HYPONATREMIA, RESOLVED. 5. HYPOKALEMIA, RESOLVED. 6. ELEVATED LIVER FUNCTION SECONDARY TO ALCOHOLISM. HISTORY: The patient was a 50-year-old male who presented with increase in cough and general achiness, feverish, and not feeling well. He was found to have positive coronavirus disease 2019 screen and was admitted to our facility for routine cares. At the time he was admitted, his lab work showed him to be hyponatremic with a sodium of 123. His D-dimer was 2.81. A CT scan was negative for PEs. All of his liver functions were elevated related to his chronic alcohol use and his CRP was 13.5. HOSPITAL COURSE: The patient did well while here. He never required any supplemental O2. We kept him on some incentive spirometry and gave him his routine pulmonary nebs which included inhaled steroid and albuterol. For the most part, he did well. He never required oxygen. He was ambulating without drop in his sats. His D-dimer declined in his entire stay. We put him on some fluids for the first couple of days to improve his hyponatremia and his sodium was up to 137. His potassium did get low for a day or two at 3.3 and we gave him oral potassium while here and he was 4.6 at discharge. At this time, he clinically looks well. He has not had any issues with withdrawals from his alcohol. We did keep him on Librium and he never needed any p.r.n. Ativan while he was here. He will have followup in the next 2 weeks for routine recheck, but clinically looks stable and is discharged home on his normal medications. COMPLICATIONS: During his stay were none. CONSULTATIONS: None. DISPOSITION: Discharged home. ELIZABETH /[id number]
== END 2021-01-15 13:26 | disposition home or self-care (01) | DRG 177 ==
LOC: CC.ED 18:01 → CC.MS 21:27 → UNDOADMOB 21:27 → CC.MS 21:28 → UNDOADMOB 21:28 → CC.MS 21:58 → OBSVTOIN 21:58 → INTOOBSV 21:58 → UNDOADMOB 21:58
PROVIDERS: ADMIT Nurse Practitioner Family; ATTEND Family Medicine
DX: U07.1 COVID-19 (principal); J12.82 Pneumonia due to coronavirus disease 2019; E87.1 Hypo-osmolality and hyponatremia; I10 Essential (primary) hypertension; G40.909 Epilepsy, unspecified, not intractable, without status epilepticus; F17.210 Nicotine dependence, cigarettes, uncomplicated; R74.8 Abnormal levels of other serum enzymes; F10.20 Alcohol dependence, uncomplicated; E87.6 Hypokalemia
CPT/HCPCS: 36415; 71045; 71275; 80048; 80053; 82550; 83605; 83615; 83735; 84484; 85025; 85379; 85610; 86140; 93005; 94640; 99285-25; A9270-GY; J0456; J0696; J1650; J2270; J3411; J3475; J3490; J7030; J7050; J7620-GY; Q9967; U0002

== ENCOUNTER 2024-10-22 22:47 | Emergency (ER) | payer OTHER ==
[2024-10-22] MEDS: Sodium Chloride 0.9% 1,000 ML IV ONE (23:31)
[2024-10-22 23:46] LABS: BASOPHILS ABSOLUTE AUTO 0.02 10^3/uL (0.00-0.50); BASOPHILS PERCENT AUTO 0.2 % (0-1); EOSINOPHILS ABSOLUTE AUTO 0.01 10^3/uL (0.00-1.50); EOSINOPHILS PERCENT AUTO 0.1 % (0-6); HEMATOCRIT 34.2 % (42.0-52.0); HEMOGLOBIN 12.6 g/dL (14.0-18.0); IMMATURE GRAN ABSOLUTE AUTO 0.07 10^3/uL (0.00-0.49); IMMATURE GRAN PERCENT AUTO 0.6 % (0.0-4.9); LYMPHOCYTES ABSOLUTE AUTO 1.11 10^3/uL (0.60-5.00); LYMPHOCYTES PERCENT AUTO 9.1 % (24-44); MEAN CORPUSCULAR HEMOGLOBIN 31.9 pg (27.0-32.0); MEAN CORPUSCULAR HGB CONC 36.8 g/dL (32.0-36.0); MEAN CORPUSCULAR VOLUME 86.6 fL (83.0-97.0); MONOCYTES ABSOLUTE AUTO 1.47 10^3/uL (0.00-1.50); NEUTROPHILS ABSOLUTE AUTO 9.56 x10^3/uL (1.80-8.00); PLATELET COUNT,PLT 335 10^3/uL (150-400); RED BLOOD CELL COUNT 3.95 x10^6/uL (4.50-6.00); WHITE BLOOD CELL COUNT,WBC 12.2 10^3/uL (4.0-11.0)
[2024-10-23 00:18] LABS: ALANINE AMINOTRANSFERASE,ALT 63 U/L (12-78); ALBUMIN 3.1 g/dL (3.4-5.0); ALKALINE PHOSPHATASE 99 U/L (46-116); ASPARTATE AMNIOTRANSFERASE,AST 125 U/L (15-37); BILIRUBIN TOTAL 1.7 mg/dL (0.0-1.0); BLOOD UREA NITROGEN,BUN 15 mg/dL (7-18); CALCIUM 8.9 mg/dL (8.4-10.1); CARBON DIOXIDE,CO2 30 mmol/L (21-32); CHLORIDE,CL 70 mEq/L (98-106); CREATININE 0.8 mg/dL (0.7-1.3); EST CRCL DRUG DOSING (CG) 89.69 mL/min; GLUCOSE RANDOM 76 mg/dL (75-99); LIPASE 12 U/L (16-77); MAGNESIUM 1.7 mg/dL (1.8-2.4); PROTEIN TOTAL,TP 7.5 g/dL (6.4-8.2)
[2024-10-23 00:27] LABS: CREATINE KINASE,CK 4796 U/L (35-232); ESTIMATED GFR 104 mL/min (>=60); ETHANOL BLOOD MEDICAL < 3 mg/dL (0-3)
[2024-10-23 00:29] LABS: POTASSIUM,K 2.9 mEq/L (3.5-5.0); SODIUM,NA 111 mEq/L (136-145)
[2024-10-23] MEDS: Succinylcholine 200 MG/10 ML MDV IV STA (01:55)
[2024-10-23 01:57] LABS: APPEARANCE,URINE CLEAR (CLEAR); COLOR,URINE DARK YELLOW (YELLOW); GLUCOSE,URINE NEGATIVE (NEGATIVE); KETONES,URINE 40 mg/dL (NEGATIVE); LEUKOCYTE ESTERASE,URINE NEGATIVE (NEGATIVE); NITRITE,URINE NEGATIVE (NEGATIVE); OCCULT BLOOD,URINE TRACE-INTACT (NEGATIVE); PROTEIN,URINE 100 mg/dL (NEGATIVE)
[2024-10-23] MEDS: propofoL 1,000 MG/100 ML 100 ML IV SCH (01:58)
[2024-10-23 02:05] LABS: BILIRUBIN,URINE SMALL (NEGATIVE)
[2024-10-23 02:06] LABS: BACTERIA,URINE OCCASIONAL /HPF (NOT SEEN); RBC,URINE 0-5 /HPF (0-5); SQUAMOUS EPITHELIAL CELLS,UR NOT SEEN /HPF (NOT SEEN); WBC,URINE 0-5 /HPF (0-5)
[2024-10-23 02:07] LABS: AMPHETAMINES,URINE NEGATIVE (NEGATIVE); BARBITURATES,URINE NEGATIVE (NEGATIVE); BENZODIAZEPINE,URINE NEGATIVE (NEGATIVE); MDMA (ECSTASY), URINE NEGATIVE (NEGATIVE); METHADONE,URINE NEGATIVE (NEGATIVE); METHAMPHETAMINES,URINE NEGATIVE (NEGATIVE); OPIATES,URINE NEGATIVE (NEGATIVE); OXYCODONE,URINE NEGATIVE (NEGATIVE); PHENCYCLIDINE,URINE NEGATIVE (NEGATIVE); TCA,URINE POSITIVE (NEGATIVE)
[2024-10-23] MEDS: Rocuronium 50 MG/5 ML Vial IVPUSH ONE ×3 (02:13→07:44)
[2024-10-23] MEDS: Midazolam 1 MG/ML 2 ML SDV IVPUSH ONE ×2 (02:50→08:05)
[2024-10-23 03:06] LABS: CALCIUM 7.5 mg/dL (8.4-10.1); CREATININE 0.6 mg/dL (0.7-1.3); EST CRCL DRUG DOSING (CG) 119.58 mL/min
[2024-10-23 03:07] LABS: POTASSIUM,K 2.7 mEq/L (3.5-5.0)
[2024-10-23] MEDS: Etomidate 2 MG/ML 10 ML SDV IVPUSH ONE ×3 (03:09→07:21)
[2024-10-23] MEDS: Iopamidol 755 Mg/ML 100 ML Bottle IVPUSH ONE (03:42)
[2024-10-23] MEDS: Sodium Chloride 3% 100 ML IV ONE (07:22)
[2024-10-23] MEDS: Etomidate 2 MG/ML 10 ML SDV ONE ×5 (07:46)
[2024-10-23] MEDS: Potassium Chloride Riders 20 MEQ in Premix Bag 1 BAG IV ONE (07:56)
[2024-10-23] MEDS: Sodium Chloride 0.9% 500 ML ONE (07:57)
[2024-10-23] MEDS: Sodium Chloride 0.9% 250 ML ONE (07:57)
[2024-10-23] MEDS: Sodium Chloride 0.9% 100 ML ONE (07:57)
[2024-10-23] MEDS: Rocuronium 50 MG/5 ML Vial ONE (07:57)
[2024-10-24 00:29] VITALS: BP 63/46; PULSE 109
== END 2024-10-23 04:10 ==
LOC: CC.ED 22:47
DX: E87.5 Hyperkalemia (principal); E87.1 Hypo-osmolality and hyponatremia; R41.82 Altered mental status, unspecified; I10 Essential (primary) hypertension; Z79.899 Other long term (current) drug therapy
CPT/HCPCS: 31500; 36415; 51702; 70450; 71045; 80048; 80053; 80305-QW; 80307; 81001; 82550; 83605; 83690; 83735; 84484; 85025; 86140; 87040; 87428-QW; 93005; 93010; 96361; 96365; 96366; 96368; 96375; 99284; 99291-25; J0330; J2250; J2704; J3480; J3490; J7030; J7131

== ENCOUNTER 2025-07-15 12:55 | Emergency (ER) | payer MEDICAID ==
[2025-07-15 13:23] LABS: BASOPHILS ABSOLUTE AUTO 0.10 10^3/uL (0.00-0.50); BASOPHILS PERCENT AUTO 1.4 % (0-1); EOSINOPHILS ABSOLUTE AUTO 0.21 10^3/uL (0.00-1.50); EOSINOPHILS PERCENT AUTO 3.0 % (0-6); IMMATURE GRAN ABSOLUTE AUTO 0.01 10^3/uL (0.00-0.49); IMMATURE GRAN PERCENT AUTO 0.1 % (0.0-4.9); LYMPHOCYTES ABSOLUTE AUTO 2.25 10^3/uL (0.60-5.00); LYMPHOCYTES PERCENT AUTO 32.5 % (24-44); MONOCYTES ABSOLUTE AUTO 0.55 10^3/uL (0.00-1.50); MONOCYTES PERCENT AUTO 7.9 % (0-10); NEUTROPHILS ABSOLUTE AUTO 3.81 x10^3/uL (1.80-8.00); NEUTROPHILS PERCENT AUTO 55.1 % (41-71); PLATELET COUNT,PLT 423 10^3/uL (150-400); RED BLOOD CELL COUNT 4.43 x10^6/uL (4.50-6.00); WHITE BLOOD CELL COUNT,WBC 6.9 10^3/uL (4.0-11.0)
[2025-07-15 13:24] VITALS: BP 114/82; PULSE 94
[2025-07-15 14:29] LABS: ALANINE AMINOTRANSFERASE,ALT 18.0 U/L (12-78); ASPARTATE AMNIOTRANSFERASE,AST 18.0 U/L (15-37); BILIRUBIN TOTAL 0.6 mg/dL (0.0-1.0); BLOOD UREA NITROGEN,BUN 12.0 mg/dL (7-18); CARBON DIOXIDE,CO2 23.0 mmol/L (21-32); CHLORIDE,CL 100.0 mEq/L (98-106); CREATININE 0.9 mg/dL (0.7-1.3); EST CRCL DRUG DOSING (CG) 56.27 mL/min; ESTIMATED GFR 100.0 mL/min (>=60); GLUCOSE RANDOM 76.0 mg/dL (75-99); POTASSIUM,K 4.3 mEq/L (3.5-5.0); PROTEIN TOTAL,TP 7.4 g/dL (6.4-8.2); SODIUM,NA 138.0 mEq/L (136-145)
== END 2025-07-15 15:30 | disposition home or self-care (01) ==
LOC: CC.ED 12:55
DX: R63.4 Abnormal weight loss (principal); E86.0 Dehydration; F17.200 Nicotine dependence, unspecified, uncomplicated; I10 Essential (primary) hypertension; Z79.890 Hormone replacement therapy; Z79.01 Long term (current) use of anticoagulants; Z79.899 Other long term (current) drug therapy; Z87.19 Personal history of other diseases of the digestive system; Z79.51 Long term (current) use of inhaled steroids
CPT/HCPCS: 36415; 80053; 83735; 85025; 96360; 99284-25; J7030